=== PATIENT | female | born 1980 | race Caucasian/White ===

== ENCOUNTER 2017-05-27 05:14 | Inpatient (IN) | payer BC ==
[2017-05-27] MEDS ORDERED: Dextrose 5%-Lactated Ringers 1,000 ML IV SCH (06:00)
[2017-05-27] MEDS ORDERED: Albuterol/Ipratropium 3.0-0.5 MG/3 ML Neb Soln NEB ONE (06:00)
[2017-05-27] MEDS ORDERED: Scopolamine 1.5 MG Transdermal Patch TRDERM SCH (06:00)
[2017-05-27] MEDS ORDERED: Celecoxib 200 MG Cap PO ONE ×2 (06:00)
[2017-05-27] MEDS ORDERED: cefOXitin 2 GM Vial ONE (07:01)
[2017-05-27] MEDS ORDERED: Levofloxacin/Dextrose 5%-Water 500 MG in Premix Bag 1 BAG IV ONE (07:15)
[2017-05-27] MEDS ORDERED: Dexamethasone 4 MG/ML SDV ONE (07:16)
[2017-05-27] MEDS ORDERED: Propofol 200 MG/20 ML SDV ONE (07:16)
[2017-05-27] MEDS ORDERED: Glycopyrrolate 0.2 MG/ML 5 ML MDV ONE (07:16)
[2017-05-27] MEDS ORDERED: Ondansetron 4 MG/2 ML SDV ONE (07:16)
[2017-05-27] MEDS ORDERED: Neostigmine Methylsulfate 1 MG/ML 5 ML Syringe ONE (07:16)
[2017-05-27] MEDS ORDERED: Rocuronium 50 MG/5 ML Vial ONE (07:16)
[2017-05-27] MEDS ORDERED: Midazolam 1 MG/ML 2 ML SDV ONE (07:16)
[2017-05-27] MEDS ORDERED: Succinylcholine 200 MG/10 ML MDV ONE (07:16)
[2017-05-27] MEDS ORDERED: Ketamine 500 MG/5 ML MDV IV SCH (07:30)
[2017-05-27] MEDS ORDERED: Ropivacaine 56 ML, Dexamethasone 8 MG, EPINEPHrine 0.4 MG, Sodium Chloride 0.9% 21.6 ML NERVRT SCH ×4 (07:30)
[2017-05-27] MEDS ORDERED: Lidocaine 2% 100 MG/5 ML Syringe IVPUSH ONE (07:30)
[2017-05-27] MEDS ORDERED: Levofloxacin 500 MG/20 ML SDV ONE (07:45)
[2017-05-27] MEDS ORDERED: Lactated Ringers 1,000 ML ONE (08:15)
[2017-05-27] MEDS ORDERED: hydrOXYzine HCl 100 MG/2 ML SDV IM ONE (09:49)
[2017-05-27] MEDS ORDERED: fentaNYL 100 MCG/2 ML SDV IVPUSH ONE (10:15)
[2017-05-27] MEDS ORDERED: Naloxone 0.4 MG/ML SDV IV PRN (11:20)
[2017-05-27] MEDS: HYDROmorphone/Normal Saline 15 MG/30 ML PCA IV PRN (11:31)
[2017-05-27] MEDS: Dextrose 5%-Lactated Ringers 1,000 ML IV SCH ×2 (11:35→22:54)
[2017-05-27] MEDS: Lidocaine 0.4%/D5W 2 GM/500 ML BAG IV SCH (11:42)
[2017-05-27] MEDS ORDERED: Albuterol/Ipratropium 3.0-0.5 MG/3 ML Neb Soln INH PRN (12:00)
[2017-05-27] MEDS ORDERED: Metoclopramide 10 MG/2 ML SDV IVPUSH PRN (12:00)
[2017-05-27] MEDS ORDERED: Ondansetron 4 MG/2 ML SDV IVPUSH PRN (12:00)
[2017-05-27] MEDS ORDERED: SCOPOLAMINE PATCH ASK TOP SCH (12:00)
[2017-05-27] MEDS ORDERED: Labetalol 20 MG/4 ML Syringe IVPUSH PRN (12:00)
[2017-05-27] MEDS: Pantoprazole 40 MG Vial IVPUSH SCH (12:03)
[2017-05-27] MEDS: Albuterol/Ipratropium 3.0-0.5 MG/3 ML Neb Soln INH SCH ×2 (14:59→21:13)
[2017-05-27] MEDS: diphenhydrAMINE 50 MG/ML SDV IVPUSH PRN ×2 (17:04→23:36)
[2017-05-27] MEDS: MVI, Adult with Vitamin K 10 ML, Thiamine 200 MG, Chromium/Copper/Mang/Selen/Zn 1 ML in... IV SCH ×4 (17:05)
[2017-05-27] MEDS: Heparin Sodium 5,000 Units/ML Vial SUBCUT SCH (17:18)
[2017-05-27] MEDS: hydrOXYzine HCl 100 MG/2 ML SDV IM PRN (20:06)
[2017-05-27] MEDS: Montelukast 10 MG Tab PO SCH (21:15)
[2017-05-27] MEDS: Ketotifen 0.025% Ophth Soln 5 ML Bottle EYEBOTH SCH (21:15)
[2017-05-28] MEDS: hydrOXYzine HCl 100 MG/2 ML SDV IM PRN ×2 (00:14→05:12)
[2017-05-28] MEDS ORDERED: Iohexol 647 MG/ML 50 ML SDV PO STA (00:29)
[2017-05-28] MEDS: Lidocaine 0.4%/D5W 2 GM/500 ML BAG IV SCH (01:10)
[2017-05-28] MEDS: HYDROmorphone/Normal Saline 15 MG/30 ML PCA IV PRN (01:49)
[2017-05-28] MEDS: Dextrose 5%-Lactated Ringers 1,000 ML IV SCH (04:22)
[2017-05-28] MEDS: Heparin Sodium 5,000 Units/ML Vial SUBCUT SCH ×2 (05:13→17:48)
[2017-05-28] MEDS: diphenhydrAMINE 50 MG/ML SDV IVPUSH PRN (05:51)
[2017-05-28] MEDS ORDERED: Levofloxacin/Dextrose 5%-Water 500 MG in Premix Bag 1 BAG IV SCH (06:00)
[2017-05-28] MEDS ORDERED: methylPREDNISolone Sodium Succinate 40 MG/1 ML SDV IVPUSH ONE (06:40)
[2017-05-28] MEDS: Albuterol/Ipratropium 3.0-0.5 MG/3 ML Neb Soln INH SCH ×4 (07:26→20:57)
[2017-05-28] MEDS ORDERED: methylPREDNISolone Sodium Succinate 125 MG/2 ML SDV IVPUSH SCH ×2 (08:00→18:00)
[2017-05-28] MEDS ORDERED: Dextrose 5%-Lactated Ringers 1,000 ML IV SCH (08:01)
[2017-05-28] MEDS ORDERED: Zolpidem 5 MG Tab PO PRN (08:01)
[2017-05-28] MEDS ORDERED: Albuterol 8 GM Inhaler INH PRN ×3 (08:01)
[2017-05-28] MEDS: oxyCODONE 5 MG Tab PO PRN ×3 (08:29→17:42)
--- NOTE | 2017-05-28 08:30 | CR ---
Limited upper GI. Contrast within the distal esophagus. Contrast into small bowel past the anastomos is.
--- NOTE | 2017-05-28 08:58 | PN ---
DATE OF SERVICE: 05/28/2017 SUBJECTIVE: Comfort is postop day one. Her lidocaine drip is still running. She has had an increased amount of itching all night long. She states she only slept about 15 minutes, and she has been up ambulating. Concerned about having a bowel movement. She did retain urine and did have to have a Fry catheter put back in. REVIEW OF SYSTEMS: Remainder of review of systems negative for any pertinent positives and negatives. OBJECTIVE: GENERAL: Comfort Barton is a 36-year-old female. VITAL SIGNS: TPR 97.1, 81, 18. Blood pressure 148/70. HEENT: Negative. NECK: Supple. HEART: Regular rate and rhythm. LUNGS: Clear. ABDOMEN: Dressings dry and intact. Abdominal binder is on. SERENA put out 130 mL of a light pink serous drainage. EXTREMITIES: SCDs are on and there is no peripheral edema. ASSESSMENT: Laparoscopic gastric bypass surgery, liver biopsy, repair of diaphragmatic hernia, and excision of mediastinal lipoma for morbid obesity, hepatomegaly, diaphragmatic hernia, and mediastinal lipoma. Date of surgery 05/27/2017. PLAN: 1. Decrease IV to 100 mL per hour, Solu-Medrol 80 mg IV now. 2. Solu-Medrol IV 60 mg every 12 hours. 3. Dressing off, february shower. 4. Discontinue Fry catheter at 1100 hours. 5. Oxycodone 5 mg q.4 hours p.r.n. pain. 6. Gastric bypass diet step two with no cereal. 7. She is to restart her home medication betamethasone one applicator twice daily, Flonase one spray in each nostril every 12 hours, levothyroxine 75 mcg p.o. daily, milk of magnesia 30 mL b.i.d., Singulair 10 mg p.o. at bedtime, Ambien 10 mg p.o. daily p.r.n., Advair 250/50 Diskus one inhalation q.12 hours, Diprolene 0.05% one applicator topical daily, Elocon 0.1% cream one applicator daily, Zonegran 150 mg b.i.d. as scheduled, prazosin Minipress 4 mg at bedtime, Seroquel 25 mg b.i.d., Seroquel 30 mg p.o. at bedtime, senna 8.6 mg b.i.d., Atarax 100 mg p.o. t.i.d. scheduled. 8. Good pulmonary toilet encouraged. 9. We will evaluate p.r.n. or in a.m. Kat Pedro PA-C /[id number]
[2017-05-28] MEDS ORDERED: Olopatadine 0.1% Ophth Soln 5 ML Bottle EYEBOTH SCH (09:00)
[2017-05-28] MEDS ORDERED: MOMETASONE FUROATE TOP SCH (09:00)
[2017-05-28] MEDS: Formoterol/Mometasone 200-5 MCG 8.8 GM Inhaler IH SCH ×2 (09:31→20:57)
[2017-05-28] MEDS: hydrOXYzine HCl 25 MG Tab PO SCH ×3 (09:35→20:56)
[2017-05-28] MEDS: Celecoxib 200 MG Cap PO SCH (09:35)
[2017-05-28] MEDS: Fluticasone Propionate Nasal Spray 16 GM Bottle NASBOTH SCH (09:36)
[2017-05-28] MEDS: Ketotifen 0.025% Ophth Soln 5 ML Bottle EYEBOTH SCH ×2 (09:38→20:57)
[2017-05-28] MEDS: Levothyroxine 75 MCG Tab PO SCH (09:38)
[2017-05-28] MEDS: Magnesium Hydroxide 400 MG/5 ML Susp 30 ML Cup PO SCH ×2 (09:39→20:54)
[2017-05-28] MEDS: SCOPOLAMINE PATCH CHECK TOP SCH (09:39)
[2017-05-28] MEDS: Sennosides 8.6 MG Tab PO SCH ×2 (09:40→21:00)
[2017-05-28] MEDS: QUEtiapine 25 MG Tab PO SCH ×2 (11:19→15:46)
[2017-05-28] MEDS: Pantoprazole 40 MG Vial IVPUSH SCH (11:20)
--- NOTE | 2017-05-28 14:46 | OR ---
DATE OF PROCEDURE: 05/27/2017 PREOPERATIVE DIAGNOSIS: Morbid obesity. POSTOPERATIVE DIAGNOSES: 1. Morbid obesity. 2. Marked hepatomegaly. 3. Paraesophageal diaphragmatic hernia. 4. Mediastinal lipoma. OPERATIVE PROCEDURES: 1. Laparoscopic Sade-en-Y gastric bypass, long limb gastroenterostomy (16624). 2. Sher-Cut needle liver biopsy (24456). 3. Repair of paraesophageal diaphragmatic hernia (11608). 4. Excision of mediastinal lipoma (07747). ANESTHESIA: General. INDICATION FOR PROCEDURE: This is a 36-year-old female presenting with longstanding morbid obesity and increasingly significant comorbidities. After preoperative evaluation and discussion, she wished to proceed with a gastric bypass procedure. Potential risks of the procedure including bleeding, infection, leaks from various GI tract closures, problems with bowel obstruction over time as well as possibility of cardiopulmonary, septic, or hemorrhagic complications leading to were discussed, and the patient wishes to proceed. The patient has in place ventriculoperitoneal shunt. This will be temporary ligated during the procedure through a small incision in the anterior chest wall. The potential risks primarily that the catheter might become infected or fractured were also reviewed, and she wishes to proceed. DETAILS OF PROCEDURE: The patient was taken to the operating room and after general endotracheal anesthesia was induced, initially, the bilateral subcostal transversus abdominis plane blocks were placed with the usual formula. These were done with continuous ultrasound guidance and adequate deployment of the solution was confirmed by ultrasound. Following this, the patient was converted to a lithotomy position and the orogastric tube was placed and the abdomen and chest wall were prepped and draped. Initially, the shunt was palpated over the anterior chest wall, and a small transverse incision was made at that level. It was carried down through the skin and subcutaneous tissue. The catheter itself was not dissected free from the soft tissues but enough of the subcutaneous tissue around it was then freed up and a steel clamp will be placed on it and this was left in place until the conclusion of the procedure, at which time the skin overlying was closed as per the other incisions. At this point, a 15 cm inferior, 5 cm left of xiphoid process, transverse incision was made and the peritoneal cavity was entered under direct vision with an Optiview trocar inflated to 15 mmHg pressure with CO2. Laparoscope was then reinserted. No underlying trocar insertion site injuries were seen. Following this, 5 additional trocars were placed across the upper and mid abdomen. General exploration was undertaken. The patient was noted to have marked hepatomegaly with liver being grossly fatty infiltrated. There did not appear to be any cirrhotic changes. Of note, the patient had quite a bit of significant liver injury secondary to Tylenol overdose, but the liver today other than that for being somewhat large fatty infiltrate, consistent with obesity, was not particularly diseased. Sher-Cut biopsies were obtained from left lobe of the liver. Minimal bleeding from the biopsy site was controlled with electrocautery. At this point, the omentum was divided in the midline up to the level of the transverse colon. This allowed identification of the small bowel to the ligament of Treitz. Small bowel was then traced out 200 cm distal to that point, it was divided transversely with a GRACE stapler. Small bowel was then traced out to additional 150 cm, where the [id number] enteroenterostomy was accomplished with internal firing of the Endo-GRACE 60 mm stapler. The common opening was then closed transversely with the same stapler and angles anastomosed, and mesenteric defect approximated with some Ethibond stitch along with 4 mL of fibrin sealant. The Sade limb was then from the mesentery for a few centimeters, which allowed an antecolic position of the Sade limb up to the level of the gastroesophageal junction without tension. The liver was retracted anteriorly and the patient noted to have a moderate-sized paraesophageal diaphragmatic hernia with prolapse of some perigastric fat and upper aspect of the fundus in a plane anterior to the course of the esophagus. This was reduced and the peritoneum overlying the hernia. We divided and reflected downward. An anterior repair of the diaphragmatic hernia was accomplished with some 0 Ethibond sutures reinforced with PTFE pledgets. The course of the diaphragmatic hernia dissection and the mediastinal lipoma was encountered and this was excised and sent as a separate specimen as well. At this point, the gastrointestinal catheter was inflated 15 mL and pulled up snugly to the EG junction, gastric wall apex balloon was then marked with electrocautery, and balloon catheter deflated and pulled up in the esophagus. The lesser omental tissue adjacent to the gastric cardia was then incised allowing dissection of the stomach posteriorly into the lesser sac. The pouch formation was initiated with a transverse firing of the GRACE stapler at the level of the cauterized peter at the gastric cardia and then completed with 2 additional firings of GRACE stapler up to and through the angle of His. Upon completion of the pouch, both staple lines were noted to be intact. The anvil of a 21 mm EEA stapler was attached to a [place] sump type tube. The later was brought down through the mouth and a small opening gastric pouch, allowing the anvil likewise to be pulled down to within the gastric pouch. The divided end of the Sade limb was then opened by the EEA stapler passed several cm into the Sade limb, brought up the anvil and united with it, thus creating the gastrojejunostomy. Upon removal of stapler, double donuts of mucosa were noted within and small bowel was closed off with a gastric stapling. Gastrojejunostomy was reinforced with some 3-0 Vicryl seromuscular stitch along with fibrin sealant. A leak test was accomplished with injection of 120 mL of air in the gastric pouch while submerged with cefoxitin-containing saline solution. No leaks were identified. One Jose D-Weinstein drain was in place using the gastrojejunostomy from there up into the splenic fossa and taken out through the left lateral trocar site with no further problems noted. Trocars were removed. The peritoneal cavity was deflated. Incisions were closed with some 4-0 Vicryl skin stitch and dressing was applied. The patient was taken to the recovery room in a satisfactory condition. Vadim Nice MD /[id number]
[2017-05-28] MEDS ORDERED: diphenhydrAMINE 25 MG Cap PO PRN (17:04)
[2017-05-28] MEDS ORDERED: hydrOXYzine HCl 25 MG Tab PO PRN (17:06)
[2017-05-28] MEDS ORDERED: Ondansetron 4 MG Tab.DIS PO PRN (17:08)
[2017-05-28] MEDS: MVI, Adult with Vitamin K 10 ML, Thiamine 200 MG, Chromium/Copper/Mang/Selen/Zn 1 ML in... IV SCH ×4 (17:28)
[2017-05-28] MEDS ORDERED: QUEtiapine 100 MG Tab PO SCH (21:00)
[2017-05-28] MEDS ORDERED: Prazosin 1 MG Cap PO SCH (21:00)
[2017-05-28] MEDS ORDERED: Montelukast 10 MG Tab PO SCH (21:00)
[2017-05-28] MEDS: Montelukast 10 MG Tab PO SCH (21:02)
[2017-05-29 04:25] VITALS: BP 131/71
[2017-05-29] MEDS: oxyCODONE 5 MG Tab PO PRN ×2 (04:32→09:15)
[2017-05-29] MEDS: Heparin Sodium 5,000 Units/ML Vial SUBCUT SCH (05:33)
[2017-05-29] MEDS: Celecoxib 200 MG Cap PO SCH (07:28)
[2017-05-29] MEDS: Levothyroxine 75 MCG Tab PO SCH (07:29)
[2017-05-29] MEDS: Albuterol/Ipratropium 3.0-0.5 MG/3 ML Neb Soln INH SCH (07:44)
--- NOTE | 2017-05-29 08:40 | DISCH ---
ADMISSION DIAGNOSES: Morbid obesity, hypothyroidism, allergic rhinitis, asthma, esophageal reflux, anemia, seizure disorder, sleep apnea, anxiety and depression, pseudotumor cerebri, fibrocystic breast disease, intracranial hypertension, headache, right pulmonary nodule, vaginal high risk HPV DNA test positive, pseudo-seizure, headache disorder, posttraumatic stress disorder, attention-deficit/hyperactivity disorder, anxiety and depression, bipolar disorder, borderline personality disorder, history of drug overdose, history of tuberculosis, ptosis of right eyelid. DISCHARGE DIAGNOSES: Laparoscopic Sade-en-Y gastric bypass surgery, long limb gastroenterostomy, Sher-Cut needle liver biopsy, repair of paraesophageal diaphragmatic hernia, and excision of mediastinal lipoma for morbid obesity, marked hepatomegaly, periesophageal diaphragmatic hernia, and mediastinal lipoma. Date of surgery 05/27/2017. HISTORY: Comfort is a 36-year-old female with longstanding history of morbid obesity and increasing comorbidities. After preoperative evaluation and discussion of possible risks and possible complications, she wished to proceed with surgical procedure. Comfort did develop intense itching with no rash. On postop day #1, she was given Solu-Medrol IV then changed to Medrol Dosepak, and this did help with the itching. HOSPITAL COURSE: Comfort had her surgery on 05/27/2017. She had no operative complications. On postop day #1, she was started on a step-2 gastric bypass diet. She was started on her oral medication. On postop day #2, she received dietary instruction, B12 1000 mcg IM injection. Her pain was well controlled. Activity was good. Vital signs stable, and she is able to be discharged to home without any complications. PHYSICAL EXAMINATION: GENERAL: Comfort Dietrich is a 36-year-old female. VITAL SIGNS: Height is 5 feet 2 inches, weight is 233 pounds. TPR 98.5, 79, 16. Blood pressure 131/71. HEENT: Negative. NECK: Supple. HEART: Regular rate and rhythm. LUNGS: Clear. ABDOMEN: Dressings dry. Incisions look good. SERENA drain is intact. This will be removed prior to discharge and 4x4 will be placed over it. Abdominal binder has been on. EXTREMITIES: Without peripheral edema. DISPOSITION: Discharged to home. CONDITION: Stable and improving. FOLLOWUP: On 06/10/2017 at 9:00 a.m. at [place], [place] with Kat Pedro PA-C. DISCHARGE MEDICATIONS: New prescription Celebrex 200 mg oral daily for 14 days, Medrol 4 mg Dosepak use as directed to fill only if she needs it for itching, oxycodone 5 mg q.4 hours p.r.n. pain #30. Continue taking multivitamin chewable complete one b.i.d., vitamin B12 sublingual 1000 mcg daily, ProAir inhaler 2 puffs every 4 hours p.r.n. shortness of breath, Proventil 3 mL inhalation every 4 hours p.r.n. shortness of breath, Diprolene 0.05% one applicator topical twice daily, Magic Mouthwash 5 mL oral daily p.r.n. mouth sores, Flonase 2 inhalation daily, Advair 250/50 Diskus one inhalation every 12 hours, levothyroxine 75 mcg oral daily, Elocon 0.1% cream one applicator topical daily, Singulair 10 mg oral at bedtime, Patanol 0.1% ophthalmic solution one drop each eye twice daily, Protonix 20 mg oral daily, prazosin 4 mg oral at bedtime, psyllium fiber 0.52 g oral twice daily, Seroquel 300 mg at bedtime, Seroquel 25 mg oral twice daily, senna one tablet oral twice daily, Ambien 10 mg oral daily p.r.n. insomnia, Zonegran 150 oral twice daily, Atarax 100 mg oral 3 times a day, Depo-Provera 1 injection every three months. Discontinue taking biotin, calcium citrate, vitamin D3, Vitron C, and B complex until next appointment instructions will be given. DISCHARGE DIET: After discharge, step-2 gastric bypass diet with no cereal for 2 weeks. ACTIVITY: No lifting over 10 pounds for 2 weeks. DISCHARGE INSTRUCTIONS: Driving, do not drive while on pain medication. Shower bathing, may shower. Notify provider if any fever, increased pain, nausea, or vomiting. Wound incision care, keep site clean and dry. Wear abdominal binder for 2 weeks and use incentive spirometer 10 times every hour while awake.
[2017-05-29] MEDS ORDERED: Cyanocobalamin (Vitamin B12) 1,000 MCG/ML SDV IM ONE (09:00)
[2017-05-29] MEDS: Formoterol/Mometasone 200-5 MCG 8.8 GM Inhaler IH SCH (09:13)
[2017-05-29] MEDS: SCOPOLAMINE PATCH CHECK TOP SCH (09:31)
[2017-05-29] MEDS: Fluticasone Propionate Nasal Spray 16 GM Bottle NASBOTH SCH (09:32)
[2017-05-29] MEDS: hydrOXYzine HCl 25 MG Tab PO SCH (09:32)
[2017-05-29] MEDS: Sennosides 8.6 MG Tab PO SCH (09:32)
[2017-05-29] MEDS: Ketotifen 0.025% Ophth Soln 5 ML Bottle EYEBOTH SCH (09:32)
[2017-05-29] MEDS: Magnesium Hydroxide 400 MG/5 ML Susp 30 ML Cup PO SCH (09:32)
[2017-05-29] MEDS: QUEtiapine 25 MG Tab PO SCH (09:32)
== END 2017-05-29 11:15 | disposition home or self-care (01) | DRG 403 ==
LOC: JP.MS 05:14 → JP.SDS 05:14 → EDSTATUS 07:30 → JP.2SS 09:00
PROVIDERS: ADMIT Surgery; ATTEND Surgery
PROC: 0FB24ZX Excision of Left Lobe Liver, Percutaneous Endoscopic Approach, Diagnostic (ICD-10-PCS; principal; 2017-05-27)
PROC: 3E0T3BZ Introduction of Anesthetic Agent into Peripheral Nerves and Plexi, Percutaneous Approach (ICD-10-PCS; principal; 2017-05-27)
PROC: 0BQS4ZZ (ICD-10-PCS; principal; 2017-05-27)
PROC: 0BQR4ZZ (ICD-10-PCS; principal; 2017-05-27)
PROC: 0D164ZA Bypass Stomach to Jejunum, Percutaneous Endoscopic Approach (ICD-10-PCS; principal; 2017-05-27)
PROC: 0WBC4ZX Excision of Mediastinum, Percutaneous Endoscopic Approach, Diagnostic (ICD-10-PCS; principal; 2017-05-27)
DX: E66.01 Morbid (severe) obesity due to excess calories (principal); Z68.41 Body mass index [BMI] 40.0-44.9, adult; R16.0 Hepatomegaly, not elsewhere classified; K44.9 Diaphragmatic hernia without obstruction or gangrene; D17.4 Benign lipomatous neoplasm of intrathoracic organs; K76.0 Fatty (change of) liver, not elsewhere classified; G47.30 Sleep apnea, unspecified; K21.9 Gastro-esophageal reflux disease without esophagitis; G47.00 Insomnia, unspecified; F32.9 Major depressive disorder, single episode, unspecified; E03.9 Hypothyroidism, unspecified; F41.9 Anxiety disorder, unspecified; F43.10 Post-traumatic stress disorder, unspecified; Z98.2 Presence of cerebrospinal fluid drainage device; J45.909 Unspecified asthma, uncomplicated; Z86.11 Personal history of tuberculosis; Z88.6 Allergy status to analgesic agent; Z88.1 Allergy status to other antibiotic agents; Z88.8 Allergy status to other drugs, medicaments and biological substances; Z91.048 Other nonmedicinal substance allergy status; G40.909 Epilepsy, unspecified, not intractable, without status epilepticus; L29.9 Pruritus, unspecified; H02.401 Unspecified ptosis of right eyelid; F60.3 Borderline personality disorder
CPT/HCPCS: 36415; 74240; 74240-26; 86850; 86900; 86901; 88304; 88307; 88313; 94640-76; 94664; A9270-GY; C9113; J0171; J0330; J0694; J1100; J1170; J1200; J1644; J1956; J2001; J2250; J2405; J2704; J2795; J2920; J3010; J3410; J3411; J3420; J7030; J7042; J7050; J7120; J7620; Q9967

== ENCOUNTER → 2017-06-24 | Day surgery (SDC) | payer BC ==
[~2017-06-24] MED LIST: Cyanocobalamin (Vitamin B12) 1,000 MCG/ML SDV IM ONE; Glycopyrrolate 0.2 MG/ML 2 ML SDV IVPUSH ONE; Lactated Ringers 1,000 ML IV ONE; MVI, Adult with Vitamin K 10 ML, Chromium/Copper/Mang/Selen/Zn 1 ML, Thiamine 200 MG in... IV ONE; Midazolam 1 MG/ML 2 ML SDV ONE; Propofol 200 MG/20 ML SDV ONE; fentaNYL 100 MCG/2 ML SDV ONE
[2017-06-24 14:31] VITALS: BP 117/71
--- NOTE | 2017-06-29 12:04 | OR ---
DATE OF PROCEDURE: 06/24/2017 PREOPERATIVE DIAGNOSIS: Possible stricture at gastrojejunostomy. POSTOPERATIVE DIAGNOSIS: Mild stricture at gastrojejunostomy. OPERATIVE PROCEDURE: Upper GI endoscopy with dilation of gastrojejunostomy (87602). ANESTHESIA: IV sedation. INDICATION FOR PROCEDURE: This is a 36-year-old presenting with symptom of stricturing at her gastrojejunostomy. She is status post a gastric bypass procedure on 05/27/2017. Plan is to proceed with an upper GI endoscopy with dilation as indicated. Potential risks including bleeding and perforation were discussed and the patient wishes to proceed. DETAILS OF PROCEDURE: The patient was taken to the operating room and placed in a left lateral decubitus position. IV sedation was administered after which the upper GI endoscope was passed orally through the length of the esophagus and from there into the gastric pouch. The patient was noted to have a mild stricture of the gastrojejunostomy with the scope actually being able to be passed through the anastomosis. Initially, a Bard gastrointestinal balloon catheter was inflated to 36-Maltese size and then a second dilator at 45-Maltese size was inflated across the anastomosis. Upon completion of the dilation, the anastomosis was examined and found to be intact. The scope was then withdrawn. The procedure concluded. The patient was taken to the recovery room in a satisfactory condition. Vadim Nice MD /[id number]
== END ==
LOC: JP.SDS 11:34
PROVIDERS: ATTEND Surgery
DX: K94.23 Gastrostomy malfunction (principal); Z98.84 Bariatric surgery status
CPT/HCPCS: 43245; J2250; J2704; J3010; J3411; J3420; J7120; J3490

== ENCOUNTER 2017-07-08 07:17 | Day surgery (SDC) | payer BC ==
[~2017-07-08 07:17] MED LIST changes: +Ampicillin/Sulbactam Na 3 GM in Sodium Chloride 0.9% 100 ML IV ONE; +Bupivacaine 0.5%/EPINEPHrine 1:200,000 50 ML MDV ONE; -Cyanocobalamin (Vitamin B12) 1,000 MCG/ML SDV IM ONE; -Glycopyrrolate 0.2 MG/ML 2 ML SDV IVPUSH ONE; -Lactated Ringers 1,000 ML IV ONE; -MVI, Adult with Vitamin K 10 ML, Chromium/Copper/Mang/Selen/Zn 1 ML, Thiamine 200 MG in... IV ONE; -Midazolam 1 MG/ML 2 ML SDV ONE; -Propofol 200 MG/20 ML SDV ONE; -fentaNYL 100 MCG/2 ML SDV ONE
[2017-07-08] MEDS ORDERED: Dextrose 5%-Lactated Ringers 1,000 ML IV SCH (08:15)
[2017-07-08] MEDS ORDERED: Neostigmine Methylsulfate 1 MG/ML 5 ML Syringe ONE (09:13)
[2017-07-08] MEDS ORDERED: Glycopyrrolate 0.2 MG/ML 5 ML MDV ONE (09:13)
[2017-07-08] MEDS ORDERED: Dexamethasone 4 MG/ML SDV ONE (09:13)
[2017-07-08] MEDS ORDERED: Rocuronium 50 MG/5 ML Vial ONE (09:13)
[2017-07-08] MEDS ORDERED: Succinylcholine 200 MG/10 ML MDV ONE (09:13)
[2017-07-08] MEDS ORDERED: Ondansetron 4 MG/2 ML SDV ONE (09:13)
[2017-07-08] MEDS ORDERED: Propofol 200 MG/20 ML SDV ONE (09:13)
[2017-07-08] MEDS ORDERED: Albuterol/Ipratropium 3.0-0.5 MG/3 ML Neb Soln NEB ONE (09:15)
[2017-07-08] MEDS ORDERED: Levofloxacin/Dextrose 5%-Water 500 MG in Premix Bag 1 BAG IV ONE ×4 (09:15)
[2017-07-08] MEDS ORDERED: Meperidine 300 MG/30 ML PCA Vial IV PRN (09:35)
[2017-07-08] MEDS ORDERED: Naloxone 0.4 MG/ML SDV IV PRN (09:41)
[2017-07-08] MEDS ORDERED: Levofloxacin 500 MG/20 ML SDV ONE (11:36)
[2017-07-08] MEDS ORDERED: Sugammadex Sodium 200 MG/2 ML VIAL ONE (11:50)
[2017-07-08] MEDS ORDERED: Zolpidem 5 MG Tab PO PRN (12:52)
[2017-07-08] MEDS ORDERED: Albuterol/Ipratropium 3.0-0.5 MG/3 ML Neb Soln INH PRN (12:53)
[2017-07-08] MEDS ORDERED: Pantoprazole 40 MG Vial IV SCH (14:00)
[2017-07-08] MEDS: Albuterol/Ipratropium 3.0-0.5 MG/3 ML Neb Soln INH SCH ×2 (14:31→20:03)
[2017-07-08] MEDS: Ondansetron 4 MG/2 ML SDV IVPUSH PRN (17:10)
[2017-07-08] MEDS: oxyCODONE 5 MG Tab PO PRN ×2 (18:01→22:02)
[2017-07-08] MEDS: Zonisamide 50 MG Capsule PO SCH (20:02)
[2017-07-08] MEDS: OLOPATADINE 0.1% EYEBOTH SCH (20:03)
[2017-07-08] MEDS: Dextrose 5%-Lactated Ringers 1,000 ML IV SCH (20:47)
[2017-07-08] MEDS ORDERED: Montelukast 10 MG Tab PO SCH (21:00)
[2017-07-08] MEDS ORDERED: Ketotifen 0.025% Ophth Soln 5 ML Bottle EYEBOTH SCH (21:00)
[2017-07-09] MEDS: oxyCODONE 5 MG Tab PO PRN ×2 (02:16→08:45)
[2017-07-09] MEDS: Ondansetron 4 MG/2 ML SDV IVPUSH PRN (02:16)
[2017-07-09] MEDS: Dextrose 5%-Lactated Ringers 1,000 ML IV SCH (04:47)
[2017-07-09] MEDS: Albuterol/Ipratropium 3.0-0.5 MG/3 ML Neb Soln INH SCH (07:21)
[2017-07-09 07:41] VITALS: BP 111/69
[2017-07-09] MEDS: OLOPATADINE 0.1% EYEBOTH SCH (08:46)
[2017-07-09] MEDS: Zonisamide 50 MG Capsule PO SCH (08:46)
[2017-07-09] MEDS ORDERED: Levofloxacin/Dextrose 5%-Water 500 MG in Premix Bag 1 BAG IV ONE (09:00)
--- NOTE | 2017-07-09 13:51 | OR ---
DATE OF PROCEDURE: 07/08/2017 PREOPERATIVE DIAGNOSES: 1. Biliary dyskinesia. 2. Status post ventriculoperitoneal shunt. POSTOPERATIVE DIAGNOSES: 1. Biliary dyskinesia. 2. Status post ventriculoperitoneal shunt. OPERATIVE PROCEDURES: 1. Laparoscopic cholecystectomy (81217). 2. Temporary ligation of ventriculoperitoneal shunt (31360). ANESTHESIA: General. RECREATIONAL DIRECTOR: Kat Pedro PA-C. INDICATION FOR PROCEDURE: This is a 36-year-old female who is presenting with increasingly symptomatic gallbladder disease. She recently had a HIDA scan, which had a fairly precise reproduction of the patient's nausea and other symptoms with the CCK injection. Given this, she is to undergo a cholecystectomy at this time. She has a ventriculoperitoneal shunt in place, and that will be temporarily ligated during the course of the procedure to prevent CO2 backflow by the shunt. Potential risks including bleeding, infection, injury to underlying viscera, problems with stones migrating in the common bile duct requiring potentially additional procedures for correction, as well as possibility of the ventriculoperitoneal shunt becoming infected were all gone over. Finally, the possibility of some persistent symptoms postoperatively were reviewed, and the patient wishes to proceed. DETAILS OF PROCEDURE: The patient was taken to the operating room. After general endotracheal anesthesia was induced, the neck and the abdomen were prepped and draped. The ventriculoperitoneal shunt was most easily palpated in the upper anterior chest. A small incision was made over this and soft tissues dissected around the shunt to the extent that it could be temporarily occluded with a mosquito clamp. The soft tissue was not directly dissected down to the point where it was directly over the shunt itself, to limit chances of getting that area infected. At this point, the abdomen was entered under direct vision with an Optiview trocar through an incision just to the right of the umbilicus. The peritoneal cavity was entered and inflated to 15 mmHg of CO2. The laparoscope was then reinserted. No underlying trocar insertion site injuries were seen. Following this, a 12-mm epigastric trocar was placed along with a 5-mm right abdominal trocar. The liver, since the recent gastric bypass, had improved dramatically in terms of the degree of fatty infiltration and overall size, thus making the gallbladder exposure to this point quite straightforward. The gallbladder itself was quite edematous, consistent with chronic cholecystitis. The gallbladder was then retracted anteriorly and laterally. Dissection began on the gallbladder neck with the Harmonic scalpel and continued around the gallbladder neck/cystic duct junction. Once that area was well defined, as was the adjacent cystic artery, both structures were clipped 3 times proximally and once distally and the gallbladder neck/cystic duct junction divided. The gallbladder was then dissected off the gallbladder bed using Harmonic scalpel and delivered through the epigastric trocar site off the field. The gallbladder was inspected and was noted to have an intense cholesterolosis on its mucosal surface. The patient was also noted to have a small polyp seen in the preoperative imaging, which appeared to be quite small and very unlikely to be anything but a benign polyp. At this point, the area of dissection was inspected. The abdomen was irrigated with a Levaquin-containing saline solution. The trocars were then sequentially removed. The fascia of the 12 mm sites were closed with 0 Vicryl stitch and the skin at each incision with 4-0 Vicryl skin stitch, as was the incision over the ventriculoperitoneal shunt. The patient was taken to the recovery room in a satisfactory condition. Physician advertising assistant manager, Kat Pedro, played an essential role in assisting in this case, helping to position the patient, retract structures as needed, as well as suturing and cutting sutures when indicated. Her presence improved patient safety and decreased the operative time. Vadim Nice MD /[id number]
--- NOTE | 2017-07-09 15:30 | DISCH ---
ADMISSION DIAGNOSES: Adenomyomatosis, gallbladder; chronic cholecystitis; SP Sade-en-Y gastric bypass surgery; unspecified surgical malabsorption; B12 deficiency; allergic rhinitis; hypothyroidism; asthma; seizure disorders; sleep apnea with use of CPAP; anxiety and depression; pseudotumor cerebri; intracranial hypertension; headache; pulmonary nodule on the right; headache disorder; posttraumatic stress disorder. DISCHARGE DIAGNOSES: Laparoscopic cholecystectomy for chronic cholecystitis associated with biliary dyskinesia and temporary ligation of PROFESSOR OF ENGLISH shunt, SP PROFESSOR OF ENGLISH shunt for pseudotumor cerebri. Date of surgery, 07/08/2017. HISTORY: Comfort Barton is a 36-year-old female with persistent right upper quadrant abdominal pain and nausea after preoperative evaluation and discussion of possible risks and possible complications, she wished to proceed with surgical procedure. HOSPITAL COURSE: Comfort had her surgery on 07/08/2017. She had no operative complications. On postop day #1, she was able to be discharged to home. DISCHARGE PHYSICAL EXAMINATION: GENERAL: Comfort Barton is a 36-year-old female. VITAL SIGNS: Height is 5 feet 2 inches. Weight is 214 pounds. TPR is 96.2, 62, 16. Blood pressure 111/69. HEENT: Negative. NECK: Supple. HEART: Regular rate and rhythm. LUNGS: Clear. ABDOMEN: Incision looks good. Sutures in place. Abdominal binder is benign. EXTREMITIES: Without peripheral edema. DISPOSITION: Discharged to home. CONDITION: Stable and improving. FOLLOWUP APPOINTMENT: Kat Pedro PA-C, on 07/15/2017 at 9:00 a.m. at [facility], [place], [facility]. DISCHARGE MEDICATIONS: Oxycodone 5-10 mg q.4 hours p.r.n. pain, #40; MiraLAX 17 g p.o. b.i.d. She is to resume her home medications as she was taking prior to hospitalization. DISCHARGE DIET: Step-3 gastric bypass diet. Drink 8 to 10 glasses of water a day. ACTIVITY: As tolerated. No lifting greater than 10 pounds for 2 weeks. Driving, do not drive on pain medication. Dressing off, may shower. Keep operative site clean and dry. Wear abdominal binder for 2 weeks and then as tolerated. Notify provider if any fever, increased pain, nausea, vomiting, and use incentive spirometer 10 times every hour while awake for 1 week.
== END 2017-07-09 10:40 | disposition home or self-care (01) ==
LOC: JP.SDS 07:17 → JP.2SS 11:50 → JP.SDS 07-09 10:40
PROVIDERS: ATTEND Surgery
DX: K81.1 Chronic cholecystitis (principal); G47.33 Obstructive sleep apnea (adult) (pediatric); I10 Essential (primary) hypertension; E03.9 Hypothyroidism, unspecified; E66.01 Morbid (severe) obesity due to excess calories; J45.20 Mild intermittent asthma, uncomplicated; K21.9 Gastro-esophageal reflux disease without esophagitis; F41.8 Other specified anxiety disorders; Z88.1 Allergy status to other antibiotic agents; Z88.8 Allergy status to other drugs, medicaments and biological substances; Z91.09 Other allergy status, other than to drugs and biological substances; Z68.41 Body mass index [BMI] 40.0-44.9, adult; Z98.84 Bariatric surgery status; Z98.890 Other specified postprocedural states; Z79.899 Other long term (current) drug therapy
CPT/HCPCS: 36415; 47562; 62225; 80048; 82247; 84075; 85025; 94640; 94762; A9270; C9113; J0330; J1100; J1956; J2175; J2405; J2704; J2710; J3010; J7042; J7620; 88304

== ENCOUNTER 2021-04-25 21:15 | Inpatient (IN) | payer BC, OTHER ==
[2021-04-25] MEDS ORDERED: diphenhydrAMINE 25 MG Cap PO PRN (21:23)
[2021-04-25] MEDS ORDERED: Ondansetron 4 MG/2 ML SDV IVPUSH PRN ×2 (21:23)
[2021-04-25] MEDS ORDERED: Naloxone 0.4 MG/ML SDV IVPUSH PRN (21:23)
[2021-04-25] MEDS ORDERED: diphenhydrAMINE 50 MG/ML SDV IVPUSH PRN (21:23)
[2021-04-25] MEDS ORDERED: HYDROmorphone/Normal Saline 15 MG/30 ML PCA IV SCH (21:30)
[2021-04-25] MEDS: Dextrose 5%-Lactated Ringers 1,000 ML IV SCH (21:56)
[2021-04-25] MEDS ORDERED: QUEtiapine 100 MG Tab PO ONE (23:45)
[2021-04-25] MEDS ORDERED: ALPRAZolam 0.5 MG Tab PO ONE (23:45)
[2021-04-25] MEDS ORDERED: Prazosin 1 MG Cap PO ONE (23:45)
[2021-04-26] MEDS ORDERED: QUEtiapine 100 MG Tab PO ONE (00:15)
[2021-04-26] MEDS ORDERED: QUEtiapine 100 MG Tab ONE (00:20)
[2021-04-26] MEDS: Morphine 2 MG/ML SYRINGE IVPUSH PRN ×4 (04:19→10:00)
[2021-04-26] MEDS: Dextrose 5%-Lactated Ringers 1,000 ML IV SCH ×3 (04:25→22:58)
[2021-04-26] MEDS ORDERED: Non-Formulary Medication 1 Each IV ONE ×2 (07:07)
[2021-04-26] MEDS ORDERED: Ketamine 500 MG/5 ML MDV IV SCH ×3 (07:15→09:00)
--- NOTE | 2021-04-26 07:36 | PCM.HP.2 ---
H&P History of Present Illness - General Date of Service: 04/26/21 Source of Information: Patient History Limitations: Reports: No Limitations - History of Present Illness Initial Comments - Free Text/Narative: Comfort was transferred by ambulance from [place], [place] for a partial small bowel obstruction, internal hernia and possible sigmoid volvulus. Abdominal pain started about 2 weeks ago and gradually increased. Quality: Reports: Pressure, Same as Previous Episode, Stabbing, Throbbing Improves with: Reports: Medication Worsens with: Reports: Eating, Movement Associated Symptoms: Reports: Loss of Appetite, Weakness, Other (nausea but no vomiting. ) - Related Data Allergies/Adverse Reactions: Allergies Allergy/AdvReac Type Severity Reaction Status Date / Time metaxalone [From Skelaxin] Allergy Severe Difficulty Verified 07/08/17 08:01 Breathing hydromorphone Allergy Intermediate Itching Verified 04/26/21 00:34 acetaminophen Allergy Cannot Verified 07/08/17 08:01 Remember acetazolamide Allergy Cannot Verified 07/08/17 08:01 [From Diamox Sequels] Remember adhesive tape Allergy Cannot Verified 07/08/17 08:01 Remember aspartame Allergy Cannot Verified 07/08/17 08:01 Remember cephalexin [From Keflex] Allergy Rash Verified 07/08/17 08:01 escitalopram Allergy Rash Verified 07/08/17 08:01 furosemide [From Lasix] Allergy Cannot Verified 07/08/17 08:01 Remember gabapentin Allergy Rash Verified 07/08/17 08:01 ibuprofen Allergy Rash Verified 07/08/17 08:01 lamotrigine Allergy Rash Verified 07/08/17 08:01 oxcarbazepine Allergy Itching Verified 07/08/17 08:01 paroxetine Allergy Hives Verified 07/08/17 08:01 soap Allergy Rash Verified 07/08/17 08:01 sumatriptan Allergy Wheezing Verified 07/08/17 08:01 topiramate Allergy Rash Verified 07/08/17 08:01 venlafaxine Allergy Wheezing Verified 07/08/17 08:01 dust mite Allergy Cannot Uncoded 07/08/17 08:01 Remember Home Medications: Home Meds Albuterol [Proventil HFA] 3 ml INH Q4H PRN 05/22/17 [History] Betamethasone/Propylene Glyc [Diprolene 0.05%] 1 applic TP BID 05/22/17 [History] Cyanocobalamin (Vitamin B-12) [Vitamin B-12] 1,000 mcg SL DAILY 05/22/17 [History] Fluticasone Propion/Salmeterol [Advair 250-50 Diskus] 1 inh IH Q12H 05/22/17 [History] Fluticasone Propionate [Flonase] 2 inh INH BID 05/22/17 [History] Levothyroxine Sodium [Synthroid] 75 mcg PO DAILY 05/22/17 [History] Mometasone Furoate [Elocon 0.1% Crm] 1 applic TOP DAILY 05/22/17 [History] Montelukast [Singulair] 10 mg PO BEDTIME 05/22/17 [History] Olopatadine [Patanol 0.1% Ophth Soln] 1 drop EYEBOTH DAILY 05/22/17 [History] Pantoprazole Sodium [Protonix] 20 mg PO DAILY 05/22/17 [History] Pediatric Multivitamin Comb#30 [Gummies Children Multivitamin] 1 each PO BID 05/22/17 [History] Prazosin HCl [Prazosin] 5 mg PO BEDTIME 05/22/17 [History] QUEtiapine [SEROquel] 300 mg PO BEDTIME 05/22/17 [History] Sennosides [Senna] 1 tab PO BID 05/22/17 [History] Zolpidem Tartrate [Ambien] 10 mg PO BEDTIME PRN 05/22/17 [History] Zonisamide [Zonegran] 300 mg PO BID 05/22/17 [History] Albuterol [Ventolin HFA] 2 puff INH Q4H PRN 05/27/17 [History] medroxyPROGESTERone Acetate [Depo-Provera] 1 injection IM .Q3MO 05/27/17 [History] Biotin 10 mg PO DAILY 06/24/17 [History] Cholecalciferol (Vitamin D3) [Vitamin D3] 5,000 unit PO DAILY 06/24/17 [History] Iron Polysaccharide Complex/D3 [Novaferrum 125 Liquid] 2.5 ml PO BID 06/24/17 [History] Triamcinolone Acetonide [Triamcinolone Acetonide 0.1% Oint] 1 applic TOP BID 06/24/17 [History] Vitamin B Complex [B Complex] 1 each PO DAILY 06/24/17 [History] Polyethylene Glycol 3350 [MiraLAX] 17 gm PO BID #60 packet 07/09/17 [Rx] Prazosin HCl [Prazosin] 5 mg PO BEDTIME 04/25/21 [History] QUEtiapine Fumarate [Seroquel] 800 mg PO BEDTIME 04/25/21 [History] ALPRAZolam [Alprazolam] 2 mg PO TID 04/26/21 [History] Past Medical History HEENT History: Reports: Allergic Rhinitis, Hard of Hearing, Impaired Vision, Other (See Below) Other HEENT History: intracranal pressure Respiratory History: Reports: Asthma, Sleep Apnea, Other (See Below) Other Respiratory History: 1998 tx for tb Gastrointestinal History: Reports: Cholelithiasis, Chronic Diarrhea, GERD, Hiatal Hernia, Irritable Bowel Syndrome, Other (See Below) Other Gastrointestinal History: Bowel Obstruction October in [place] Genitourinary History: Reports: None 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: Reports: None Musculoskeletal History: Reports: None Neurological History: Reports: Headaches, Chronic Psychiatric History: Reports: Anxiety, Depression, Panic Attack, PTSD Endocrine/Metabolic History: Reports: Hypothyroidism, Obesity/BMI 30+ Hematologic History: Reports: Anemia, B12 Deficiency, Iron Deficiency Immunologic History: Reports: None Oncologic (Cancer) History: Reports: None Dermatologic History: Reports: Other (See Below) Other Dermatologic History: dermititis - Infectious Disease History Infectious Disease History: Reports: Chicken Pox - Past Surgical History HEENT Surgical History: Reports: Other (See Below) Other HEENT Surgeries/Procedures: vp account director shunt Cardiovascular Surgical History: Reports: None Respiratory Surgical History: Reports: Lung Biopsies, Other (See Below) Other Respiratory Surgeries/Procedures: benign nodule removed 10/11 right lung GI Surgical History: Reports: Bariatric Procedure, Esophageal Dilatation, Alessandra Fundoplication Female Surgical History: Reports: Breast Reduction Endocrine Surgical History: Reports: None Neurological Surgical History: Reports: None Musculoskeletal Surgical History: Reports: Other (See Below) Other Musculoskeletal Surgeries/Procedures:: cyst of tailbone Oncologic Surgical History: Reports: None Dermatological Surgical History: Reports: None Social & Family History - Family History Family Medical History: No Pertinent Family History - Tobacco Use Tobacco Use Status *Q: Never Tobacco User Second Hand Smoke Exposure: No - Caffeine Use Caffeine Use: Reports: Soda - Recreational Drug Use Recreational Drug Use: No H&P Review of Systems - Review of Systems: Review Of Systems: See Below General: Reports: Weakness, Fatigue, Decreased Appetite HEENT: Reports: No Symptoms Pulmonary: Reports: No Symptoms Cardiovascular: Reports: No Symptoms Gastrointestinal: Reports: Abdominal Pain Genitourinary: Reports: No Symptoms Musculoskeletal: Reports: No Symptoms Skin: Reports: No Symptoms Psychiatric: Reports: Depression, Anxiety, Other (ADD) Neurological: Reports: No Symptoms Hematologic/Lymphatic: Reports: No Symptoms Immunologic: Reports: No Symptoms Exam - Exam Exam: See Below - Vital Signs Vital Signs: Last Vital Signs Temp 96.3 F L 04/26/21 07:11 Pulse 78 04/26/21 07:11 Resp 18 04/26/21 07:11 BP 113/81 04/26/21 07:11 Pulse Ox 100 04/26/21 07:15 Weight: 154 lb 2 oz - Exam Quality Assessment: Central Line/PICC, DVT Prophylaxis General: Oriented, Cooperative, Sedated HEENT: PERRLA Neck: Supple, Trachea Midline Lungs: Clear to Auscultation, Normal Respiratory Effort Cardiovascular: Regular Rate, Regular Rhythm GI/Abdominal Exam: Other (Several well healed incisional scars. Right mid quadrant scar from iliostomy and left abdominal scar from colostomy. Incisional Hernia noted. Generalized tenderness. ) (Female) Exam: Deferred Rectal (Female) Exam: Deferred Back Exam: Normal Inspection Extremities: Normal Inspection, Normal Range of Motion Skin: Warm, Dry, Intact Neurological: Cranial Nerves Intact Neuro Extensive - Mental Status: Oriented x3 Neuro Extensive - Motor, Sensory, Reflexes: CN II-XII Intact Psychiatric: Labile Mood Sepsis Event Note - Evaluation Sepsis Screening Result: No Definite Risk - Focused Exam Vital Signs: Vital Signs Temp Pulse Resp BP BP Pulse Ox 04/26/21 07:15 100 04/26/21 07:11 96.3 F L 78 18 113/81 100 04/26/21 02:51 98.2 F 80 16 99/62 95 04/26/21 01:04 94 L 04/26/21 00:14 112/49 L 04/25/21 21:21 97.6 F 73 16 112/49 L 94 L 04/25/21 21:17 98 - Problem List (1) Partial small bowel obstruction SNOMED Code(s): 128237814 ICD Code: K56.600 - PARTIAL INTESTINAL OBSTRUCTION, UNSPECIFIED TO CAUSE Status: Acute Current Visit: Yes (2) Volvulus SNOMED Code(s): 4787805 ICD Code: K56.2 - VOLVULUS Status: Acute Current Visit: Yes Problem List Initiated/Reviewed/Updated: Yes Orders Last 24hrs: Active Orders 24 hr Category Date Time Status Activity as Tolerated [RC] .Routine Care 04/25/21 21:21 Active Antiembolic Devices [RC] .Routine Care 04/25/21 21:22 Active Communication Order [RC] Per Unit Routine Care 04/25/21 21:24 Active Overnight Pulse Oximetry [RC] Click to Edit Care 04/25/21 21:22 Active 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 [RC] Q4H Care 04/25/21 21:24 Active Verify Patient Consent Obtain [RC] ASDIRECTED Care 04/26/21 07:05 Active Vital Signs [RC] Q4H Care 04/25/21 21:21 Active Nothing Per Oral Diet [DIET] Diet 04/26/21 Breakfast Active ALPRAZolam [Xanax] Med 04/26/21 21:00 Active 2 mg PO BEDTIME Dextrose 5%-Lactated Ringers 1,000 ml Med 04/25/21 21:30 Active IV ASDIRECTED Ketamine [Ketalar] Med 04/26/21 07:15 Ordered See Dose Instructions IV ASDIRECTED Ketamine [Ketalar] Med 04/26/21 07:15 Ordered See Dose Instructions IV BOLUS Meropenem [Merrem] 500 mg Med 04/26/21 12:00 Ordered Sodium Chloride 0.9% [Normal Saline] 50 ml IV ONETIME Morphine Med 04/26/21 00:32 Active 2 - 4 mg IVPUSH Q2H PRN Naloxone [Narcan] Med 04/25/21 21:23 Active 0.04 mg IVPUSH Q3M PRN Non-Formulary Medication [NF Drug] Med 04/26/21 07:07 Once See Dose Instructions IV ONETIME ONE Non-Formulary Medication [NF Drug] Med 04/26/21 07:07 Once See Dose Instructions IV ONETIME ONE Ondansetron [Zofran] Med 04/25/21 21:23 Active 4 mg IVPUSH Q6H PRN Prazosin [Minpress] Med 04/26/21 21:00 Active 5 mg PO BEDTIME QUEtiapine [SEROqueL] Med 04/26/21 21:00 Active 200 mg PO BEDTIME QUEtiapine [SEROqueL] Med 04/26/21 21:00 Active 600 mg PO BEDTIME Tap Block [Tap Block, Pharmacy to Dose] Med 04/26/21 12:00 Once See Dose Instructions NERVRT ONETIME ONE diphenhydrAMINE [Benadryl] Med 04/25/21 21:23 Active 25 mg IVPUSH Q6H PRN diphenhydrAMINE [Benadryl] Med 04/25/21 21:23 Active 25 mg PO Q6H PRN Pulse Oximetry Continuous Monitoring [OM.PC] Routine Oth 04/25/21 21:22 Ordered Pulse Oximetry Continuous Monitoring [OM.PC] Routine Oth 04/25/21 21:24 Ordered SCD [Sequential Compression Device] [OM.PC] Routine Oth 04/25/21 21:22 Ordered Medication Orders Alprazolam (Alprazolam 0.5 Mg Tab) 2 mg PO BEDTIME [facility] Diphenhydramine HCl (Diphenhydramine 50 Mg/Ml Sdv) 25 mg IVPUSH Q6H PRN PRN Reason: Itching Last Admin: 04/26/21 00:30 Dose: 25 mg Documented by: CALLUM Diphenhydramine HCl (Diphenhydramine 25 Mg Cap) 25 mg PO Q6H PRN PRN Reason: Itching Dextrose/Lactated Ringer's (Dextrose 5%-Lactated Ringers) 1,000 mls @ 125 mls/hr IV ASDIRECTED BRIGID Last Admin: 04/26/21 04:25 Dose: 125 mls/hr Documented by: Infusion: 04/26/21 04:25 Dose: 125 mls/hr Documented by: Admin: 04/25/21 21:56 Dose: 125 mls/hr Documented by: CALLUM Morphine Sulfate (Morphine 2 Mg/Ml Syringe) 2 - 4 mg IVPUSH Q2H PRN PRN Reason: Pain Last Admin: 04/26/21 07:07 Dose: 2 mg Documented by: Admin: 04/26/21 04:19 Dose: 2 mg Documented by: CALLUM Naloxone HCl (Naloxone 0.4 Mg/Ml Sdv) 0.04 mg IVPUSH Q3M PRN PRN Reason: Respiratory Depression Ondansetron HCl (Ondansetron 4 Mg/2 Ml Sdv) 4 mg IVPUSH Q6H PRN PRN Reason: Nausea/Vomiting Prazosin HCl (Prazosin 1 Mg Cap) 5 mg PO BEDTIME BRIGID Quetiapine Fumarate (Quetiapine 300 Mg Tab) 600 mg PO BEDTIME BRIGID Quetiapine Fumarate (Quetiapine 100 Mg Tab) 200 mg PO BEDTIME BRIGID Assessment: Partial Small Bowel Obstruction Sigmoid Colon Volvulus SP RNY Gastric Bypass Chronic Diarrhea ADHD Pseudotumor Cerebri with UNDERWATER TRAPPER Shunt Migraine Headaches Seizure Disorder Asthma Bipolar disorder Borderline Personality Drug Overdose - intubated for 5 days History of liver failure History of Alcohol Abuse PTSD Sleep Apnea Plan: Scheduled: Exploratory Laparotomy for Release of Partial Small Bowel Obstruction and possible Small Bowel Resection and Possible Sigmoid Resection - General anesthesia - Case to Follow - 04/26/2021 - NPO - Vadim Nice MD Meropenem 500 mg IV test consultant to OR. Kat Condon 04/26/2021
[2021-04-26] MEDS ORDERED: hydrOXYzine HCL 100 MG/2 ML SDV IM PRN ×3 (08:29→16:00)
[2021-04-26] MEDS ORDERED: Bupivacaine 0.5%/EPINEPHrine 1:200,000 50 ML MDV ONE (08:54)
[2021-04-26] MEDS ORDERED: Meropenem 500 MG SDV ONE (08:54)
[2021-04-26] MEDS ORDERED: Ketamine 50 MG in Sodium Chloride 0.9% 49.5 ML IV SCH (09:00)
[2021-04-26] MEDS ORDERED: Rocuronium 50 MG/5 ML Vial ONE (09:03)
[2021-04-26] MEDS ORDERED: Glycopyrrolate 0.2 MG/ML 5 ML MDV ONE (09:03)
[2021-04-26] MEDS ORDERED: Neostigmine Methylsulfate 1 MG/ML 5 ML Syringe ONE (09:03)
[2021-04-26] MEDS ORDERED: Ondansetron 4 MG/2 ML SDV ONE (09:03)
[2021-04-26] MEDS ORDERED: fentaNYL 250 MCG/5 ML SDV ONE (09:03)
[2021-04-26] MEDS ORDERED: Dexamethasone 4 MG/ML SDV ONE (09:03)
[2021-04-26] MEDS ORDERED: Succinylcholine 200 MG/10 ML MDV ONE (09:03)
[2021-04-26] MEDS ORDERED: Propofol 200 MG/20 ML SDV ONE (09:03)
[2021-04-26] MEDS ORDERED: Meropenem 500 MG in Sodium Chloride 0.9% 50 ML IV ONE ×4 (12:00)
[2021-04-26] MEDS ORDERED: Magnesium Sulfate/Water 2 GM/50 ML BAG IV SCH (12:00)
[2021-04-26] MEDS ORDERED: Magnesium Sulfate 2.2 GM in Sodium Chloride 0.9% 250 ML IV ONE (12:00)
[2021-04-26] MEDS ORDERED: Ropivacaine 35 ML, dexAMETHasone 8 MG, EPINEPHrine 0.4 MG, Sodium Chloride 0.9% 42.6 ML NERVRT SCH ×4 (12:00)
[2021-04-26] MEDS ORDERED: Ondansetron 4 MG/2 ML SDV IVPUSH PRN ×2 (13:52→16:00)
[2021-04-26] MEDS ORDERED: diphenhydrAMINE 50 MG/ML SDV IVPUSH PRN (13:52)
[2021-04-26] MEDS ORDERED: fentaNYL 100 MCG/2 ML SDV ONE (13:52)
[2021-04-26] MEDS ORDERED: diphenhydrAMINE 25 MG Cap PO PRN (13:52)
[2021-04-26] MEDS ORDERED: Naloxone 0.4 MG/ML SDV IVPUSH PRN (13:52)
[2021-04-26] MEDS ORDERED: Naloxone 0.4 MG/ML SDV IV PRN (14:00)
[2021-04-26] MEDS: fentaNYL/Normal Saline 600 MCG/30 ML PCA Vial IV PRN (15:15)
[2021-04-26] MEDS ORDERED: ALPRAZolam 0.5 MG Tab PO PRN (15:27)
[2021-04-26] MEDS ORDERED: Albuterol/Ipratropium 3.0-0.5 MG/3 ML Neb Soln INH PRN (15:33)
[2021-04-26] MEDS ORDERED: Acetaminophen Soln 650 MG/20.3 ML UD Cup PO PRN (15:50)
[2021-04-26] MEDS ORDERED: Calcium Gluconate 10% 1 GM/10 ML SDV IVPUSH PRN (16:00)
[2021-04-26] MEDS ORDERED: Labetalol 20 MG/4 ML Syringe IVPUSH PRN (16:00)
[2021-04-26] MEDS ORDERED: MVI, Adult with Vitamin K 10 ML, Thiamine 200 MG, Zinc/Copper/Manganese/Selenium 1 ML i... IV SCH ×4 (16:00)
[2021-04-26] MEDS ORDERED: Metoclopramide 10 MG/2 ML SDV IVPUSH PRN (16:00)
[2021-04-26] MEDS: Acetaminophen Soln 650 MG/20.3 ML UD Cup PO SCH ×2 (16:39→23:00)
[2021-04-26] MEDS ORDERED: Pantoprazole 40 MG Vial IVPUSH SCH (18:00)
[2021-04-26] MEDS: Meropenem 500 MG in Sodium Chloride 0.9% 50 ML IV SCH ×2 (18:08→23:02)
[2021-04-26] MEDS: Cyclobenzaprine 10 MG Tab PO PRN (20:18)
[2021-04-26] MEDS ORDERED: ALPRAZolam 0.5 MG Tab PO SCH (21:00)
[2021-04-26] MEDS: Prazosin 1 MG Cap PO SCH (21:20)
[2021-04-26] MEDS: QUEtiapine 100 MG Tab PO SCH (21:23)
[2021-04-26] MEDS: diphenhydrAMINE 50 MG/ML SDV IVPUSH PRN (21:28)
[2021-04-27] MEDS: fentaNYL/Normal Saline 600 MCG/30 ML PCA Vial IV PRN (02:36)
[2021-04-27] MEDS ORDERED: Iopamidol 612 MG/ML 50 ML SDV PO ONE (03:04)
[2021-04-27] MEDS: diphenhydrAMINE 50 MG/ML SDV IVPUSH PRN (03:37)
[2021-04-27] MEDS: Dextrose 5%-Lactated Ringers 1,000 ML IV SCH (05:26)
[2021-04-27] MEDS: Meropenem 500 MG in Sodium Chloride 0.9% 50 ML IV SCH ×3 (05:27→18:14)
[2021-04-27] MEDS ORDERED: Dextrose 5%-Lactated Ringers 1,000 ML IV SCH (07:15)
[2021-04-27] MEDS: oxyCODONE 5 MG Tab PO PRN ×4 (08:27→21:05)
[2021-04-27] MEDS: Cyclobenzaprine 10 MG Tab PO PRN ×2 (08:28→16:29)
[2021-04-27] MEDS: Acetaminophen Soln 650 MG/20.3 ML UD Cup PO SCH ×2 (08:30→16:31)
[2021-04-27] MEDS: Celecoxib 200 MG Cap PO SCH ×2 (09:13→21:04)
[2021-04-27] MEDS: Potassium Phos in 0.9 % NaCl 15 MMOL in Premix Bag 1 BAG IV SCH ×8 (09:13→16:09)
--- NOTE | 2021-04-27 10:20 | CR ---
[facility] HISTORY: Postbariatric surgery FINDINGS: Patient swallowed water-soluble contrast. Upright views of the abdomen show no evidence of extravasation or obstruction. IMPRESSION: Status post bariatric surgery No extravasation or obstruction seen
[2021-04-27] MEDS: hydrOXYzine HCl 25 MG Tab PO PRN ×3 (10:30→18:25)
--- NOTE | 2021-04-27 12:44 | PN ---
DATE OF SERVICE: 04/27/2021 SUBJECTIVE: Comfort is postop day 1. Vital signs have been stable. She has been afebrile. Pain has been controlled with fentanyl RIPRAP MAN. Oral intake 885. Urine output via Fry catheter is 1820. SERENA drain put out 765 total, but only put out about 70 in the last 12 hours. LABORATORY TESTS: Hemoglobin 9.9. Potassium is 3.3, phosphorus is 2.4. REVIEW OF SYSTEMS: Remainder of review of systems negative for any pertinent positives and negatives. OBJECTIVE: GENERAL: Comfort Barton is a pleasant 40-year-old female. She is alert, orientated. VITAL SIGNS: TPR is 97.3, 83, 14. Blood pressure 119/74. HEENT: Negative. NECK: Supple. HEART: Regular rate and rhythm. LUNGS: Clear. ABDOMEN: Dressings dry and intact. SERENA drain intact draining a light pink drainage. Abdominal binder is on. EXTREMITIES: Without peripheral edema. ASSESSMENT: Exploratory laparotomy with sigmoid resection, incisional hernia repair x2, and excision of peritoneal implants x2. Date of procedure 04/26/2021. Surgeon: Vadim Nice MD. PLAN: 1. K-Phos 60 millimoles IV. 2. Potassium 20 mEq IV 1 time. 3. Discontinue Fry catheter. 4. Discontinue RIPRAP MAN and continuous pulse ox. 5. Oxycodone 5 mg q.4 hours p.r.n. pain. 6. Atarax 50 mg q.4 hours p.r.n. additional pain. 7. Step 2 gastric bypass diet without cereals. 8. May shower. 9. Decrease IV to 100 mL per hour. 10.Continue good pulmonary toilet. 11.We will evaluate p.r.n. or in a.m. Kat Pedro PA-C /[id number]
[2021-04-27] MEDS: Ondansetron 4 MG Tab.DIS PO PRN (14:40)
[2021-04-27] MEDS ORDERED: MVI, Adult with Vitamin K 10 ML, Thiamine 200 MG, Zinc/Copper/Manganese/Selenium 1 ML i... IV SCH ×4 (16:00)
[2021-04-27] MEDS ORDERED: Potassium Chloride 20 MEQ, Lidocaine 1% 2 ML in Sodium Chloride 0.9% 100 ML IV ONE (17:00)
[2021-04-27] MEDS: Formoterol/Mometasone 100-5 MCG 8.8 GM Inhaler IH SCH (21:03)
[2021-04-27] MEDS: QUEtiapine 100 MG Tab PO SCH (21:04)
[2021-04-27] MEDS: Pantoprazole 40 MG Tab.CR PO SCH (21:04)
[2021-04-27] MEDS: Zolpidem 5 MG Tab PO PRN (21:05)
[2021-04-27] MEDS: Prazosin 1 MG Cap PO SCH (21:05)
[2021-04-28] MEDS: Meropenem 500 MG in Sodium Chloride 0.9% 50 ML IV SCH ×3 (00:17→11:45)
[2021-04-28] MEDS: Acetaminophen Soln 650 MG/20.3 ML UD Cup PO SCH ×5 (00:17→23:28)
[2021-04-28] MEDS: oxyCODONE 5 MG Tab PO PRN ×4 (02:28→20:47)
[2021-04-28] MEDS: Ondansetron 4 MG Tab.DIS PO PRN (05:17)
[2021-04-28] MEDS: Formoterol/Mometasone 100-5 MCG 8.8 GM Inhaler IH SCH ×2 (07:27→20:48)
--- NOTE | 2021-04-28 07:59 | PN ---
DATE OF SERVICE: 04/28/2021 SUBJECTIVE: Comfort, she states her pain is controlled. She is passing flatus. Oral intake 985. States she is not having any difficulty swallowing. Output 2350. SERENA drain put out 170 mL of a clear drainage. Vital signs have been stable. REVIEW OF SYSTEMS: Remainder of review of systems negative for any pertinent positives and negatives. OBJECTIVE: GENERAL: Comfort is a pleasant 40-year-old female, alert and orientated. VITAL SIGNS: TPR 97.9, 74, 18, blood pressure 109/57. HEENT: Negative. NECK: Supple. HEART: Regular rate and rhythm. LUNGS: Clear. ABDOMEN: She has Aquacel dressing on, is clean and dry. Abdominal binder is on. SERENA drain as above. EXTREMITIES: Without peripheral edema. ASSESSMENT: Exploratory laparotomy with: 1. Reduction of small bowel volvulus and closure of internal hernia x2. 2. Rectosigmoid colon resection with coloproctostomy. 3. Excision of peritoneal nodule over omentum. 4. Excision of peritoneal nodule over small bowel mesentery. 5. Repair of recurrent incisional hernia. 6. Placement of Interceed mesh x2. POSTOPERATIVE DIAGNOSES: 1. Small bowel volvulus. 2. Sigmoid colon volvulus. 3. Recurrent incarcerated incisional hernia. 4. Peritoneal nodule 3 cm over omentum. 5. Peritoneal nodule 6 cm over small bowel mesentery. 6. Extensive intraabdominal adhesions. Date of procedure: 04/26/2021. PLAN: 1. Saline lock IV after next antibiotic and IV vitamins. 2. Colace 100 mg p.o. b.i.d. 3. Dulcolax 10 mg p.o. b.i.d. 4. Discontinue SEREAN drain. 5. Check CBC, CMP, mag, phos in a.m. 6. We will evaluate p.r.n. or in a.m. 7. Plan discharge in a.m. Kat Pedro PA-C /[id number]
[2021-04-28] MEDS ORDERED: Cyanocobalamin (Vitamin B12) 1,000 MCG/ML SDV IM ONE (09:00)
[2021-04-28] MEDS: Bisacodyl 5 MG Tab PO SCH ×2 (09:06→20:42)
[2021-04-28] MEDS: Docusate Sodium 100 MG Cap PO SCH ×2 (09:06→20:42)
[2021-04-28] MEDS: Celecoxib 200 MG Cap PO SCH ×2 (09:06→20:42)
[2021-04-28] MEDS: QUEtiapine 100 MG Tab PO SCH (20:41)
[2021-04-28] MEDS: Zolpidem 5 MG Tab PO PRN (20:42)
[2021-04-28] MEDS: Pantoprazole 40 MG Tab.CR PO SCH (20:42)
[2021-04-28] MEDS: Prazosin 1 MG Cap PO SCH (20:43)
[2021-04-29] MEDS: oxyCODONE 5 MG Tab PO PRN ×2 (05:55→10:25)
[2021-04-29 08:46] VITALS: BP 109/58; PULSE 74
[2021-04-29] MEDS: Acetaminophen Soln 650 MG/20.3 ML UD Cup PO SCH (08:48)
[2021-04-29] MEDS: Formoterol/Mometasone 100-5 MCG 8.8 GM Inhaler IH SCH (08:48)
[2021-04-29] MEDS: Bisacodyl 5 MG Tab PO SCH (08:49)
[2021-04-29] MEDS: Celecoxib 200 MG Cap PO SCH (08:49)
[2021-04-29] MEDS: Docusate Sodium 100 MG Cap PO SCH (08:49)
--- NOTE | 2021-04-30 12:18 | DISCH ---
ADMISSION DIAGNOSES: Partial small bowel obstruction and internal hernia, sigmoid colon volvulus, status post Sade-en-Y gastric bypass surgery, unspecified surgical malabsorption, B12 deficiency, vitamin D deficiency, chronic low potassium, asthma, chronic diarrhea, irritable bowel syndrome, headaches, history of pseudotumor cerebri with ventriculoperitoneal shunt, attention deficit hyperactivity disorder, seizure disorder, bipolar disorder, borderline personality, history of liver failure, posttraumatic stress disorder. DISCHARGE DIAGNOSES: Exploratory laparotomy with: 1. Reduction of small bowel volvulus and closure of internal hernia x2. 2. Rectosigmoid colon resection with coloproctostomy. 3. Excision of peritoneal nodule over omentum. 4. Excision of peritoneal nodule over small bowel mesentery. 5. Repair of recurrent incisional hernia. 6. Placement of Interceed mesh x2. POSTOPERATIVE DIAGNOSES: 1. Small bowel volvulus. 2. Sigmoid colon volvulus. 3. Recurrent incarcerated incisional hernia. 4. Peritoneal nodule, 3 cm, over omentum. 5. Peritoneal nodule, 6 cm, over small bowel mesentery. 6. Extensive intra-abdominal adhesions. 7. Date of procedure 04/26/2021. Surgeon: Vadim Nice MD. HISTORY: Comfort Barton is a 40-year-old female, [facility] [place] [place] above chief complaints after above diagnoses. After preoperative evaluation, discussion of possible risks and possible complications, she wished to proceed with surgical procedure. HOSPITAL COURSE: Comfort had her surgery on 04/26/2021. She had no operative complications. On postop day 1, her VENEER TRIMMER was discontinued. She was started on a step 2 gastric bypass diet without cereal. Oral pain medication. She was up ambulating. Vital signs were stable. Pain was well controlled. On postop day 2, she was started on bowel stimulation. Her oral intake, vital signs were all within normal limits and activity was fair. On postop day 3, she was able to be discharged to home without any complications. PHYSICAL EXAMINATION: GENERAL: Comfort Barton is a pleasant 40-year-old female, alert, oriented. VITAL SIGNS: Height 5 feet 1.8 inches, weight is 154 pounds. TPR 97.4, 89, 18, blood pressure 83/55. HEENT: Negative. NECK: Supple. HEART: Regular rate and rhythm. LUNGS: Clear. ABDOMEN: Aquacel dressings on. SERENA drain was discontinued yesterday. 4 x 4 over SERENA drain site. Abdominal binder is on. Aquacel dressing will be removed prior to discharge. EXTREMITIES: Without peripheral edema. DISPOSITION: Discharged to home. CONDITION: Stable and improving. FOLLOWUP: Appointment with Kat Pedro PA-C, on 05/08/2021, at 10:30 a.m. HOME MEDICATIONS: New are Celebrex 200 mg p.o. b.i.d., #28; oxycodone 5 mg p.o. q.4 hours p.r.n., #12. She is to resume her home medications of acetaminophen 1000 mg p.o. q.8 hours scheduled, Apresoline p.o. t.i.d., Seroquel 800 mg p.o. at bedtime, prazosin 5 mg p.o. at bedtime, Zonegran 300 mg p.o. b.i.d., chewable multivitamins b.i.d., vitamin B complex 1 daily, Ambien 10 mg at bedtime p.r.n. sleep, Depo-Provera injection for control she gets every 3 months, acetonide 0.1% ointment apply topical b.i.d., senna 1 tab p.o. b.i.d., MiraLAX 17 g p.o. b.i.d., Protonix 20 mg p.o. daily, Patanol 0.1% ophthalmic solution 1 drop to each eye twice a day, Singulair 10 mg p.o. bedtime, Elocon 0.1% cream topical, Synthroid 75 p.o. daily, iron polysaccharide complex liquid 2.5 mL p.o. b.i.d., Flonase 2 inhalations b.i.d., Advair 250/50 one inhalation every 12 hours, vitamin B12, 1000 sublingual daily, vitamin D3, 5000 units daily, Diprolene 0.05% two puffs inhalation every 4 hours p.r.n., Proventil 3 mL inhalation every 4 hours p.r.n., Seroquel. DIET: Step 2 gastric bypass diet without cereal for 2 weeks until 05/11/2021. Drink 8 to 10 glasses of water a day. ACTIVITY: No lifting greater than 10 pounds for 2 weeks. Walk 6 times daily inside your home. Driving: Do not drive for 1 week. Shower/bathing: May shower. Notify provider if any fever, increased pain, swelling, redness, drainage, nausea, or vomiting. Incision care: Keep operative site clean and dry. Wear abdominal binder for 6 weeks. OTHER SPECIAL INSTRUCTION: Use incentive spirometer 10 times every hour while awake. Work slip given that Comfort is unable to work until further notice. We will evaluate at followup appointment on 05/08/2021. /[id number]
--- NOTE | 2021-05-07 12:39 | OR ---
DATE OF PROCEDURE: 04/26/2021 SURGEON: Vadim Nice MD PREOPERATIVE DIAGNOSES: 1. Small bowel obstruction. 2. Probable sigmoid volvulus. POSTOPERATIVE DIAGNOSES: 1. Small bowel obstruction secondary to small bowel volvulus. 2. Sigmoid colon volvulus. 3. Recurrent incarcerated incisional hernia. 4. Peritoneal nodule overlying the omentum. 5. Peritoneal nodule overlying mid small bowel mesentery. 6. Extensive intraabdominal adhesions. PROCEDURES PERFORMED: Exploratory laparotomy with: 1. Reduction of small bowel volvulus and closure of internal hernia (80177). 2. Rectosigmoid colon resection with coloproctostomy (54545). 3. Excision of peritoneal nodule overlying omentum (70931). 4. Excision of peritoneal nodule overlying small bowel mesentery (46428). 5. Repair of recurrent incarcerated incisional hernia (45175). 6. Placement of Interceed mesh x2 to displace pelvic and abdominal wall from adjacent viscera to limit recurrent adhesion formation (64265). ANESTHESIA: General. LEAD FRONT DESK AGENT: Kat Pedro PA-C INDICATIONS FOR PROCEDURE: The patient was transferred from [facility] in [place] with a picture of small bowel obstruction. On CT scan, she also appears to have sigmoid colon volvulus. After preoperative evaluation and discussion, she wished to proceed with exploratory laparotomy with small and large bowel resection as indicated, reduction of any volvulus that might be encountered, and other procedures as indicated based on intraoperative findings. Potential risks of the procedure including bleeding, infection, leaks from various GI tract closures, and problems with bowel obstruction recurring over time were all reviewed, and the patient wishes to proceed. DETAILS OF PROCEDURE: The patient was taken to the operating room, and after general endotracheal anesthesia was induced, a Fry catheter was inserted and the abdomen prepped and draped. A midline incision from the area just below the umbilicus to roughly a handsbreadth below the xiphoid was made and carried down through the full thickness of the abdominal wall. Upon entering the peritoneal cavity, the patient was noted to have a large amount of small bowel which had a somewhat dusky appearance consistent with some venous hypertension. Initial exploration revealed a significant small bowel volvulus between the mesentery underlying the Sade limb and the remaining small bowel, this had been passed from a right to leftward direction. This was reduced at this point, and at that point, the bowel wall assumed a pink, very satisfactory appearance. The mesenteric defect was then closed at that point with a running 2-0 silk stitch. Additional exploration revealed peritoneal implants of uncertain nature involving the surface of the omentum. This measured around 3 cm. This was excised and sent as a separate specimen. A separate peritoneal implant again of uncertain nature measuring 6 cm was located over the mid small bowel mesentery. This was likewise excised and sent as a histologic specimen. The patient was noted, per the preoperative CT scan, to have a sigmoid volvulus that appeared to have somewhat chronic. It was notable that the colon approaching the point of volvulus was markedly distended, and overall, this was suggestive of a chronic partial obstruction at that level. The detorsed sigmoid colon and upper rectum were then divided with GRACE dolly and the underlying mesentery divided with GRACE dolly as well. The anastomosis between the proximal sigmoid colon and rectum was then accomplished with 2 internal firings of the Endo-GRACE 60 mm stapler. The common opening was closed transversely with the same stapler, the angles anastomosed, and the mesenteric defect approximated with some 3-0 Vicryl stitch along with fibrin sealant. Care was taken to avoid any spill during the course of that procedure, and at the end of the bowel resection procedure, some antibiotic-soaked sponges, which had been placed along the edges of the incision and into the adjacent peritoneal edges were removed, and new gowns and gloves were obtained. This was all in an attempt to prevent any contamination of the patient's ventriculoperitoneal shunt which was otherwise in place in the right mid abdomen somewhat posteriorly. At this point, no further major problems were noted. It was noted that during the course of the examination, the patient had recurrent incisional hernia containing some preperitoneal fat and omentum. This was dissected free and removed at that time. Interceed mesh x2 was then placed underneath the incision, and from there, down along the pelvic and abdominal wall to prevent recurrent adhesion formation. The midline fascia was then approximated with a #2 Vicryl stitch, the subcutaneous tissue with 2 layers of 3-0 and 4-0 Vicryl stitch, and the skin with dolly. Prior to closure, bilateral transversus abdominis plane blocks had been placed, and the patient was taken to the recovery room in satisfactory condition. There were no evident complications. Physician assistant produce manager, Kat Pedro, played an essential role in assisting in this case, helping to position the patient, retract structures as needed, as well as suturing and cutting sutures when indicated. Her presence improved the patient's safety and decreased the operative time. Vadim Nice MD /[id number]
== END 2021-04-29 10:40 | disposition home or self-care (01) | DRG 330 ==
LOC: JP.MS 21:15
PROVIDERS: ADMIT Surgery; ATTEND Surgery
PROC: 0DS80ZZ Reposition Small Intestine, Open Approach (ICD-10-PCS; principal; 2021-04-25)
PROC: 0DQV0ZZ Repair Mesentery, Open Approach (ICD-10-PCS; 2021-04-25)
PROC: 0DBW0ZZ Excision of Peritoneum, Open Approach (ICD-10-PCS; 2021-04-25)
PROC: 0DBW0ZZ Excision of Peritoneum, Open Approach (ICD-10-PCS; 2021-04-25)
PROC: 0WQF0ZZ Repair Abdominal Wall, Open Approach (ICD-10-PCS; 2021-04-25)
PROC: 0D1N0ZP Bypass Sigmoid Colon to Rectum, Open Approach (ICD-10-PCS; 2021-04-25)
PROC: 0DBP0ZZ Excision of Rectum, Open Approach (ICD-10-PCS; 2021-04-25)
PROC: 0DBN0ZZ Excision of Sigmoid Colon, Open Approach (ICD-10-PCS; 2021-04-25)
PROC: 3E0M05Z Introduction of Adhesion Barrier into Peritoneal Cavity, Open Approach (ICD-10-PCS; 2021-04-25)
DX: K56.2 Volvulus (principal); K43.0 Incisional hernia with obstruction, without gangrene; K91.2 Postsurgical malabsorption, not elsewhere classified; K56.51 Intestinal adhesions [bands], with partial obstruction; K66.8 Other specified disorders of peritoneum; K46.9 Unspecified abdominal hernia without obstruction or gangrene; E55.9 Vitamin D deficiency, unspecified; E53.8 Deficiency of other specified B group vitamins; J45.909 Unspecified asthma, uncomplicated; K58.0 Irritable bowel syndrome with diarrhea; R51.9 Headache, unspecified; F90.9 Attention-deficit hyperactivity disorder, unspecified type; G40.909 Epilepsy, unspecified, not intractable, without status epilepticus; F31.9 Bipolar disorder, unspecified; F43.10 Post-traumatic stress disorder, unspecified; H91.90 Unspecified hearing loss, unspecified ear; H54.7 Unspecified visual loss; G47.30 Sleep apnea, unspecified; K59.09 Other constipation; K21.9 Gastro-esophageal reflux disease without esophagitis; F41.0 Panic disorder [episodic paroxysmal anxiety]; E03.9 Hypothyroidism, unspecified; E66.9 Obesity, unspecified; D64.9 Anemia, unspecified; G93.2 Benign intracranial hypertension; Z98.2 Presence of cerebrospinal fluid drainage device; Z88.6 Allergy status to analgesic agent; Z88.1 Allergy status to other antibiotic agents; Z88.8 Allergy status to other drugs, medicaments and biological substances; Z68.28 Body mass index [BMI] 28.0-28.9, adult; Z91.09 Other allergy status, other than to drugs and biological substances; Z91.048 Other nonmedicinal substance allergy status; Z79.890 Hormone replacement therapy; Z79.899 Other long term (current) drug therapy
CPT/HCPCS: 36415; 74240; 74240-26; 80053; 82728; 83735; 84100; 85025; 85027; 88302; 88305; 88307; 94640; 94762; A9270-GY; C9113; J0171; J0330; J1100; J1170; J1200; J1642; J2020; J2185; J2270; J2405; J2704; J2710; J2795; J3010; J3410; J3411; J3420; J3475; J3480; J3490; J7050; J7121; Q9967

== ENCOUNTER 2021-05-03 18:20 | Inpatient (IN) | payer OTHER ==
--- NOTE | 2021-05-03 19:21 | EDM.PDOC ---
ED HPI GENERAL MEDICAL PROBLEM - General Chief Complaint: Abdominal Pain Stated Complaint: VIA [facility] Time Seen by Provider: 05/03/21 19:15 Source of Information: Reports: Patient, EMS, Old Records History Limitations: Reports: No Limitations - History of Present Illness INITIAL COMMENTS - FREE TEXT/NARRATIVE: Stan is a 40-year-old female who was transferred from [facility] to our facility for admission of a small bowel obstruction. The patient is normally cared for by Dr. Kevin Nice and was accepted in transfer by Dr. Velasco to the ER for evaluation. The patient had a full work-up including labs, CT of the chest with angio and CT of the abdomen and pelvis with contrast demonstrating no evidence for pulmonary emboli because she was having significant shortness of breath but she does have a bowel obstruction at the ileocolonic anastomosis. The patient initially started having abdominal pain and symptoms of a small bowel obstruction 10 days ago and was seen and evaluated in [place] where she lives with her parents. She was transferred here and Dr. Nice took her to the operating room to correct several hernias and lyse adhesions. She had been doing better until yesterday when she started having a distended abdomen, nausea, decreased appetite, and shortness of breath. She went into significant dyspnea and her mom called 911 who took her to [facility] for evaluation. Again she was found to have a high-grade obstruction at the ileocolonic anastomosis with significant dilation of the proximal small bowel which is fluid-filled. Abdomen Pain Score (Numeric/FACES): 7 - Related Data Allergies Allergy/AdvReac Type Severity Reaction Status Date / Time metaxalone [From Skelaxin] Allergy Severe Difficulty Verified 05/03/21 18:42 Breathing hydromorphone Allergy Intermediate Itching Verified 05/03/21 18:42 acetaminophen Allergy Cannot Verified 05/03/21 18:42 Remember acetazolamide Allergy Cannot Verified 05/03/21 18:42 [From Diamox Sequels] Remember adhesive tape Allergy Cannot Verified 05/03/21 18:42 Remember aspartame Allergy Cannot Verified 05/03/21 18:42 Remember cephalexin [From Keflex] Allergy Rash Verified 05/03/21 18:42 escitalopram Allergy Rash Verified 05/03/21 18:42 furosemide [From Lasix] Allergy Cannot Verified 05/03/21 18:42 Remember gabapentin Allergy Rash Verified 05/03/21 18:42 ibuprofen Allergy Rash Verified 05/03/21 18:42 lamotrigine Allergy Rash Verified 05/03/21 18:42 oxcarbazepine Allergy Itching Verified 05/03/21 18:42 paroxetine Allergy Hives Verified 05/03/21 18:42 soap Allergy Rash Verified 05/03/21 18:42 sumatriptan Allergy Wheezing Verified 05/03/21 18:42 topiramate Allergy Rash Verified 05/03/21 18:42 venlafaxine Allergy Wheezing Verified 05/03/21 18:42 dust mite Allergy Cannot Uncoded 05/03/21 18:42 Remember Home Meds: Home Meds Albuterol [Proventil HFA] 3 ml INH Q4H PRN 05/22/17 [History] Betamethasone/Propylene Glyc [Diprolene 0.05%] 1 applic TP BID 05/22/17 [History] Cyanocobalamin (Vitamin B-12) [Vitamin B-12] 1,000 mcg SL DAILY 05/22/17 [History] Fluticasone Propion/Salmeterol [Advair 250-50 Diskus] 1 inh IH Q12H 05/22/17 [History] Fluticasone Propionate [Flonase] 2 inh INH BID 05/22/17 [History] Levothyroxine Sodium [Synthroid] 75 mcg PO DAILY 05/22/17 [History] Mometasone Furoate [Elocon 0.1% Crm] 1 applic TOP DAILY 05/22/17 [History] Montelukast [Singulair] 10 mg PO BEDTIME 05/22/17 [History] Olopatadine [Patanol 0.1% Ophth Soln] 1 drop EYEBOTH DAILY 05/22/17 [History] Pantoprazole Sodium [Protonix] 20 mg PO DAILY 05/22/17 [History] Pediatric Multivitamin Comb#30 [Gummies Children Multivitamin] 1 each PO BID 05/22/17 [History] Prazosin HCl [Prazosin] 5 mg PO BEDTIME 05/22/17 [History] QUEtiapine [SEROquel] 300 mg PO BEDTIME 05/22/17 [History] Sennosides [Senna] 1 tab PO BID 05/22/17 [History] Zolpidem Tartrate [Ambien] 10 mg PO BEDTIME PRN 05/22/17 [History] Zonisamide [Zonegran] 300 mg PO BID 05/22/17 [History] Albuterol [Ventolin HFA] 2 puff INH Q4H PRN 05/27/17 [History] medroxyPROGESTERone Acetate [Depo-Provera] 1 injection IM .Q3MO 05/27/17 [History] Biotin 10 mg PO DAILY 06/24/17 [History] Cholecalciferol (Vitamin D3) [Vitamin D3] 5,000 unit PO DAILY 06/24/17 [History] Iron Polysaccharide Complex/D3 [Novaferrum 125 Liquid] 2.5 ml PO BID 06/24/17 [History] Triamcinolone Acetonide [Triamcinolone Acetonide 0.1% Oint] 1 applic TOP BID 06/24/17 [History] Vitamin B Complex [B Complex] 1 each PO DAILY 06/24/17 [History] Polyethylene Glycol 3350 [MiraLAX] 17 gm PO BID #60 packet 07/09/17 [Rx] Prazosin HCl [Prazosin] 5 mg PO BEDTIME 04/25/21 [History] QUEtiapine Fumarate [Seroquel] 800 mg PO BEDTIME 04/25/21 [History] ALPRAZolam [Alprazolam] 2 mg PO TID 04/26/21 [History] Acetaminophen [Tylenol] 1,000 mg PO Q8H cup 04/29/21 [Rx] Celecoxib [CeleBREX] 200 mg PO BID #28 cap 04/29/21 [Rx] oxyCODONE 5 mg PO Q4H PRN #12 tablet 04/29/21 [Rx] Past Medical History HEENT History: Reports: Allergic Rhinitis, Hard of Hearing, Impaired Vision, Other (See Below) Other HEENT History: intracranal pressure Respiratory History: Reports: Asthma, Sleep Apnea, Other (See Below) Other Respiratory History: 1998 tx for tb Gastrointestinal History: Reports: Cholelithiasis, Chronic Diarrhea, GERD, Hiatal Hernia, Irritable Bowel Syndrome, Other (See Below) Other Gastrointestinal History: Bowel Obstruction October in [place] Genitourinary History: Reports: None SECURITY SUPPORT ANALYST History: Reports: None Musculoskeletal History: Reports: None Neurological History: Reports: Headaches, Chronic Psychiatric History: Reports: Anxiety, Depression, Panic Attack, PTSD Endocrine/Metabolic History: Reports: Hypothyroidism, Obesity/BMI 30+ Hematologic History: Reports: Anemia, B12 Deficiency, Iron Deficiency Immunologic History: Reports: None Oncologic (Cancer) History: Reports: None Dermatologic History: Reports: Other (See Below) Other Dermatologic History: dermititis - Infectious Disease History Infectious Disease History: Reports: Chicken Pox - Past Surgical History HEENT Surgical History: Reports: Other (See Below) Other HEENT Surgeries/Procedures: vp of global marketing shunt Cardiovascular Surgical History: Reports: None Respiratory Surgical History: Reports: Lung Biopsies, Other (See Below) Other Respiratory Surgeries/Procedures: benign nodule removed 10/11 right lung GI Surgical History: Reports: Bariatric Procedure, Esophageal Dilatation, Alessandra Fundoplication, Other (See Below) Other GI Surgeries/Procedures: Recent SBO surgery with twisted bowel and hernia surgery. Female Surgical History: Reports: Breast Reduction Endocrine Surgical History: Reports: None Neurological Surgical History: Reports: None Musculoskeletal Surgical History: Reports: Other (See Below) Other Musculoskeletal Surgeries/Procedures:: cyst of tailbone Oncologic Surgical History: Reports: None Dermatological Surgical History: Reports: None Social & Family History - Family History Family Medical History: No Pertinent Family History - Tobacco Use Tobacco Use Status *Q: Never Tobacco User Second Hand Smoke Exposure: No - Caffeine Use Caffeine Use: Reports: Soda - Recreational Drug Use Recreational Drug Use: No ED ROS GENERAL - Review of Systems Review Of Systems: See Below Constitutional: Reports: Malaise, Diaphoresis, Decreased Appetite HEENT: Reports: No Symptoms Respiratory: Reports: Shortness of Breath Cardiovascular: Reports: No Symptoms Endocrine: Reports: No Symptoms GI/Abdominal: Reports: Abdominal Pain, Decreased Appetite, Distension, Nausea : Reports: No Symptoms Musculoskeletal: Reports: No Symptoms Skin: Reports: No Symptoms Neurological: Reports: No Symptoms Psychiatric: Reports: No Symptoms Hematologic/Lymphatic: Reports: No Symptoms Immunologic: Reports: No Symptoms ED EXAM, GI/ABD - Physical Exam Exam: See Below Exam Limited By: No Limitations General Appearance: Alert, Anxious, Mild Distress, Moderate Distress Throat/Mouth: Normal Inspection, Normal Oropharynx, Normal Voice, No Airway Compromise Head: Atraumatic, Normocephalic Neck: Normal Inspection, Supple Respiratory/Chest: No Respiratory Distress, Lungs Clear, Other (Splinted respirations secondary to abdominal distention) Cardiovascular: Normal Peripheral Pulses, Regular Rate, Rhythm, No Murmur, Tachycardia GI/Abdominal Exam: Distended, Guarding, Rigid, Tender (Diffusely tender), Abnormal Bowel Sounds (Markedly diminished) Back Exam: Normal Inspection Extremities: Normal Inspection Neurological: Alert, Oriented, Normal Cognition, No Motor/Sensory Deficits Psychiatric: Normal Affect, Anxious Lymphatic: No Adenopathy Course - Vital Signs Last Recorded V/S: Last Vital Signs Temp 36.1 C 05/03/21 18:40 Pulse 116 H 05/03/21 18:40 Resp 14 05/03/21 18:40 BP 126/94 H 05/03/21 18:40 Pulse Ox 92 L 05/03/21 18:40 - Re-Assessments/Exams Free Text/Narrative Re-Assessment/Exam: 05/03/21 19:[address] Velasco who admitted the patient for to the hospital in preparation for surgery tomorrow Departure - Departure Time of Disposition: 19:22 Disposition: Admitted As Inpatient 66 Clinical Impression: Small bowel obstruction, Status post gastric bypass for obesity - Discharge Information Referrals: PCP,None [Primary Care Provider] - Sepsis Event Note (ED) - Evaluation Sepsis Screening Result: No Definite Risk - Focused Exam Vital Signs: Vital Signs Temp Pulse Resp BP Pulse Ox 05/03/21 18:40 36.1 C 116 H 14 126/94 H 92 L 05/03/21 18:34 36.1 C 116 H 14 126/94 H 92 L - Problem List & Annotations (1) Status post gastric bypass for obesity SNOMED Code(s): 214632060, 509755094, 254678461, 207585547 Code(s): Z98.84 - BARIATRIC SURGERY STATUS Status: Chronic Current Visit: Yes (2) Small bowel obstruction SNOMED Code(s): 201816576 Code(s): K56.609 - UNSP INTESTNL OBST, UNSP TO PARTIAL VERSUS COMPLETE OBST Status: Acute Current Visit: Yes - Problem List Review Problem List Initiated/Reviewed/Updated: Yes
[2021-05-03] MEDS ORDERED: fentaNYL 100 MCG/2 ML SDV IVPUSH PRN (20:01)
[2021-05-03] MEDS: Morphine 2 MG/ML SYRINGE IVPUSH PRN ×2 (20:13→21:43)
[2021-05-03] MEDS: Ondansetron 4 MG/2 ML SDV IVPUSH PRN (20:34)
[2021-05-03] MEDS: Sodium Chloride 0.9% 1,000 ML IV SCH (20:38)
[2021-05-03] MEDS ORDERED: Scopolamine 1.5 MG Transdermal Patch TOP PRN (20:54)
[2021-05-03] MEDS ORDERED: Promethazine 25 MG/ML SDV IV PRN (20:57)
[2021-05-03] MEDS ORDERED: diphenhydrAMINE 25 MG Cap PO PRN (20:59)
[2021-05-03] MEDS ORDERED: diphenhydrAMINE 50 MG/ML SDV IV PRN (20:59)
[2021-05-03] MEDS: Zolpidem 5 MG Tab PO PRN (21:33)
[2021-05-03] MEDS: QUEtiapine 100 MG Tab PO SCH (21:34)
[2021-05-03] MEDS ORDERED: Sodium Chloride 0.9% 50 ML ONE (21:40)
[2021-05-04] MEDS: Morphine 2 MG/ML SYRINGE IVPUSH PRN ×7 (01:34→21:34)
[2021-05-04] MEDS: Ondansetron 4 MG/2 ML SDV IVPUSH PRN (04:36)
[2021-05-04] MEDS: Sodium Chloride 0.9% 1,000 ML IV SCH ×2 (05:11→16:27)
[2021-05-04] MEDS: Check scopolamine patch SCH ×2 (08:49→08:52)
[2021-05-04] MEDS ORDERED: Bupivacaine 0.5%/EPINEPHrine 1:200,000 50 ML MDV ONE (11:30)
[2021-05-04] MEDS ORDERED: Glycopyrrolate 0.2 MG/ML 5 ML MDV ONE (11:35)
[2021-05-04] MEDS ORDERED: Ondansetron 4 MG/2 ML SDV ONE (11:35)
[2021-05-04] MEDS ORDERED: Neostigmine Methylsulfate 1 MG/ML 5 ML Syringe ONE (11:35)
[2021-05-04] MEDS ORDERED: Rocuronium 50 MG/5 ML Vial ONE (11:35)
[2021-05-04] MEDS ORDERED: Succinylcholine 200 MG/10 ML MDV ONE (11:35)
[2021-05-04] MEDS ORDERED: Propofol 200 MG/20 ML SDV ONE (11:35)
[2021-05-04] MEDS ORDERED: Dexamethasone 4 MG/ML SDV ONE (11:35)
[2021-05-04] MEDS ORDERED: fentaNYL 250 MCG/5 ML SDV ONE ×2 (11:37→14:07)
[2021-05-04] MEDS: metroNIDAZOLE/Normal Saline 500 MG in Premix Bag 1 BAG IV ONE ×2 (12:07→12:11)
[2021-05-04] MEDS ORDERED: Clindamycin Phosphate 900 MG in Sodium Chloride 0.9% 100 ML IV ONE (13:00)
[2021-05-04] MEDS ORDERED: Ropivacaine 32 ML, dexAMETHasone 8 MG, EPINEPHrine 0.4 MG, Sodium Chloride 0.9% 45.6 ML NERVRT SCH ×4 (13:00)
[2021-05-04] MEDS ORDERED: ceFAZolin 2 GM in Sodium Chloride 0.9% 50 ML IV ONE (13:00)
[2021-05-04] MEDS ORDERED: Meropenem 500 MG SDV ONE (14:34)
[2021-05-04] MEDS ORDERED: Lactated Ringers 1,000 ML ONE (14:48)
--- NOTE | 2021-05-04 16:13 | PN ---
DATE OF SERVICE: 05/04/2021 SUBJECTIVE: Patient doing well. Pain is well controlled. No nausea, vomiting, shortness of breath, or chest pain. OBJECTIVE: VITAL SIGNS: Stable. CARDIOVASCULAR: Regular rhythm and rate. RESPIRATORY: Lungs are clear to auscultation bilaterally. ABDOMEN: Incision healing well. Distended. ASSESSMENT AND PLAN: To the OR for exploratory laparotomy. The patient's status is not improved. She remains stable with very minimal pain. However, I do not feel this will resolve without surgical intervention. We again discussed risks, benefits, alternatives, limitations including but not limited to infection, bleeding, chronic wounds, chronic pain, possibility of ostomy, abscess formation, bowel injury, respiratory and cardiovascular issues and other risks not listed here. The patient understands these risks and wishes to proceed. Macario Velasco MD /[id number]
--- NOTE | 2021-05-04 16:37 | CONS ---
DATE OF SERVICE: 05/03/2021 REFERRING PHYSICIAN: CONSULTING PHYSICIAN: Macario Velasco MD REASON FOR CONSULTATION: Abdominal pain. HISTORY OF PRESENT ILLNESS: A 40-year-old female who is seen in [facility] and subsequently transferred for small-bowel obstruction. The patient underwent an operation by Dr. Nice approximately one week ago. However, these records are not available, but this seems consistent with repair of internal hernia. The patient has abdominal pain which suggests a partial small-bowel obstruction. The patient is doing well. Pain is 1 to 2/10. Mild nausea. No vomiting, shortness of breath, or chest pain. PAST MEDICAL HISTORY: Quite extensive. The patient is on approximately 35 medications. 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 SOCIAL HISTORY: She is not a smoker. FAMILY HISTORY: Noncontributory. REVIEW OF SYSTEMS: GENERAL: Appropriate for condition. HEENT: No symptoms. RESPIRATORY: No shortness of breath. CARDIOVASCULAR: No chest pain. ENDOCRINE: No significant symptoms. MUSCULOSKELETAL: No symptoms. SKIN: No symptoms. PSYCHIATRIC: No obvious anxiety. The remainder review of systems is reviewed and is negative. PHYSICAL EXAMINATION: VITAL SIGNS: Temperature 96.9, blood pressure 109/62, pulse 123, respirations 16, 92% on 2 L. GENERAL: The patient is resting comfortably. HEENT: Pupils are equal. NECK: Supple. LUNGS: Clear. CARDIOVASCULAR: Regular rhythm and rate. RESPIRATORY: Lungs are clear to consultation bilaterally. ABDOMEN: Bowel sounds are positive. Mildly distended. EXTREMITIES: Full range of motion. NEUROLOGICAL: Oriented x3. PSYCHIATRIC: No gross depression. LABORATORY DATA: White blood cell count is normal. IMAGING: I did review the CT scan. ASSESSMENT AND PLAN: This suggests a partial small-bowel obstruction. The patient will be admitted overnight for observation. If she require surgical intervention, we will re- evaluate in the a.m. We discussed risks, benefits, alternatives, and limitations of this plan. Macario Velasco MD /[id number]
[2021-05-04] MEDS ORDERED: Phenol/Sodium Phenolate Spray 180 ML Bottle MUCMEM PRN (19:33)
[2021-05-04] MEDS: QUEtiapine 100 MG Tab PO SCH (21:26)
[2021-05-04] MEDS: Zolpidem 5 MG Tab PO PRN (21:33)
[2021-05-05] MEDS: Sodium Chloride 0.9% 1,000 ML IV SCH ×3 (00:01→16:15)
[2021-05-05] MEDS: Morphine 2 MG/ML SYRINGE IVPUSH PRN ×3 (06:27→19:45)
[2021-05-05] MEDS: Check scopolamine patch SCH (08:09)
[2021-05-05] MEDS: Ondansetron 4 MG/2 ML SDV IVPUSH PRN ×2 (12:07→19:45)
[2021-05-05] MEDS: Zolpidem 5 MG Tab PO PRN (21:25)
[2021-05-05] MEDS: QUEtiapine 100 MG Tab PO SCH (21:25)
[2021-05-06] MEDS: Sodium Chloride 0.9% 1,000 ML IV SCH ×3 (00:16→17:44)
[2021-05-06] MEDS: Ondansetron 4 MG/2 ML SDV IVPUSH PRN ×2 (06:04→15:44)
[2021-05-06] MEDS: Morphine 2 MG/ML SYRINGE IVPUSH PRN ×6 (06:04→22:10)
[2021-05-06] MEDS ORDERED: Bupivacaine 0.5% 50 ML MDV ONE (07:03)
[2021-05-06] MEDS ORDERED: Lidocaine 1% 50 ML MDV ONE (07:03)
[2021-05-06] MEDS ORDERED: Lidocaine 1% with EPINEPHrine 1:100,000 50 ML MDV ONE (07:04)
[2021-05-06] MEDS ORDERED: fentaNYL 100 MCG/2 ML SDV ONE (07:25)
[2021-05-06] MEDS ORDERED: Midazolam 1 MG/ML 2 ML SDV ONE (07:25)
[2021-05-06] MEDS ORDERED: Propofol 200 MG/20 ML SDV ONE (07:25)
[2021-05-06] MEDS ORDERED: Ropivacaine 32 ML, dexAMETHasone 8 MG, EPINEPHrine 0.4 MG, Sodium Chloride 0.9% 45.6 ML NERVRT SCH ×4 (08:00)
[2021-05-06] MEDS: Celecoxib 200 MG Cap PO SCH ×2 (09:20→21:36)
[2021-05-06] MEDS: Check scopolamine patch SCH (10:17)
--- NOTE | 2021-05-06 12:26 | PN ---
DATE OF SERVICE: 05/05/2021 SUBJECTIVE: The patient is doing well. Pain is well controlled. No nausea, vomiting, shortness of breath, or chest pain. OBJECTIVE: VITAL SIGNS: Stable. CARDIOVASCULAR: Regular rhythm and rate. RESPIRATORY: Lungs are clear to auscultation bilaterally. ABDOMEN: Nondistended. ASSESSMENT AND PLAN: The patient will continue antibiotics for her abscess. We will have a delayed primary closure tomorrow. We will keep her nil per os except for ice chips. Await GI function. Anticipate hospitalization approximately 5 to 7 days. Macario Velasco MD /[id number]
--- NOTE | 2021-05-06 13:04 | PN ---
DATE OF SERVICE: 05/06/2021 SUBJECTIVE: Patient is doing well today. No specific concerns. OBJECTIVE: VITAL SIGNS: Stable. ABDOMEN: No signs of cellulitis or infection. PLAN: To the OR for delayed primary closure. Continue to advance diet and work on discharge. Macario Velasco MD /[id number]
[2021-05-06] MEDS: QUEtiapine 100 MG Tab PO SCH (21:35)
[2021-05-06] MEDS: Zolpidem 5 MG Tab PO PRN (21:40)
[2021-05-07] MEDS: Sodium Chloride 0.9% 1,000 ML IV SCH (01:51)
--- NOTE | 2021-05-07 08:27 | OR ---
DATE OF PROCEDURE: 05/06/2021 SURGEON: Macario Velasco MD PROCEDURE: Delayed primary closure. COMPLICATIONS: None. ELECTRICIAN TECHNICIAN: None. ANESTHESIA: MAC. RISKS: Risks, benefits, alternatives, and limitations including but not limited to infection, bleeding, perforation of abdominal structures, recurrent infection, other risks not listed here were explained to the patient who wished to proceed. PROCEDURE IN DETAIL: The patient was placed in supine position. The open abdomen was prepped and draped. This was then closed with interrupted 3-0 Vicryls for the deep sutures, and then the skin was closed with dolly. The patient tolerated this procedure well. Macario Velasco MD /[id number]
--- NOTE | 2021-05-07 09:10 | OR ---
DATE OF PROCEDURE: 05/06/2021 SURGEON: Macario Velasco MD PROCEDURE: 1. Transversus abdominis plane block bilaterally. 2. Bilateral rectus sheath blocks. COMPLICATION: None. CURTAIN DRIER: None. RISKS: Risks, benefits, alternatives, and limitations including, but not limited to infection, bleeding, and injury to abdominal structures were explained to the patient who wished to proceed. PROCEDURE IN DETAIL: The patient was placed in the supine position. The left transversus plane was identified 1st. 20% of the solution was injected in this spot under ultrasound guidance. This was then repeated on the other side. Bilateral rectus sheaths were also injected in the posterior sheath without difficulty. 20% of the solution was injected in each of these respectively. The patient tolerated the procedure well. Macario Velasco MD /[id number]
[2021-05-07] MEDS: Ondansetron 4 MG/2 ML SDV IVPUSH PRN ×2 (09:19→16:55)
[2021-05-07] MEDS: Morphine 2 MG/ML SYRINGE IVPUSH PRN ×7 (09:19→21:59)
[2021-05-07] MEDS: Celecoxib 200 MG Cap PO SCH ×2 (09:19→21:07)
[2021-05-07] MEDS: Check scopolamine patch SCH (09:28)
[2021-05-07] MEDS ORDERED: Hypromellose 0.3% Ophth Soln 15 ML Bottle EYEBOTH PRN (09:57)
[2021-05-07] MEDS ORDERED: Furosemide 20 MG/2 ML VIAL IVPUSH ONE (10:45)
--- NOTE | 2021-05-07 13:37 | PN ---
DATE OF SERVICE: 05/07/2021 SUBJECTIVE: The patient has improved significantly overnight. She is now having multiple bowel movements. No nausea, vomiting, shortness of breath, or chest pain. OBJECTIVE: VITAL SIGNS: Stable. She is afebrile per nursing report. CARDIOVASCULAR: Regular rhythm and rate. SKIN: Dressing is intact. ASSESSMENT: Status post exploratory laparotomy. PLAN: We will continue to advance her diet. We will saline lock her IV. Macario Velasco MD /[id number]
[2021-05-07] MEDS: Zolpidem 5 MG Tab PO PRN (21:07)
[2021-05-07] MEDS: QUEtiapine 100 MG Tab PO SCH (21:08)
[2021-05-07] MEDS ORDERED: Sodium Chloride 0.9% 500 ML IV ONE (22:01)
[2021-05-08] MEDS: Morphine 2 MG/ML SYRINGE IVPUSH PRN ×3 (01:06→08:01)
--- NOTE | 2021-05-08 07:20 | OR ---
DATE OF PROCEDURE: 05/04/2021 SURGEON: Macario Velasco MD PROCEDURES: 1. Exploratory laparotomy (21599). 2. Repair of internal hernia with incarcerated small bowel (26984). 3. Drainage of subcutaneous/intra-abdominal abscess (95442). 4. Decompression of small bowel via enterotomy (87327). 5. Removal fluid of collection right lower quadrant, non-appendiceal (09311). COMPLICATIONS: None. RECYCLING ATTENDANT: None. ANESTHESIA: General. INDICATIONS: A 40-year-old female who had a hernia type repair performed by another surgeon approximately 1 week ago. The patient has developed abdominal pain and requires exploratory laparotomy. FINDINGS: 1. Internal hernia in the proximity of the distal small bowel, repaired with Vicryl suture. 2. Fluid collection in right lower quadrant, serous type fluid, not related to appendix. 3. Abscess that is extending from the skin into the subcutaneous tissues and through the fascia (cultured). 4. Decompression of small bowel fluid (approximately 5000 mL). RISKS: Risks, benefits, alternatives, and limitations including but not limited to infection, bleeding, injury to abdominal structures, fistula formation, possibility of ostomy, and other risks not listed here were explained to the patient. She understands these risks and wishes to proceed. PROCEDURE IN DETAIL: The patient was placed in supine position. The previous dolly were opened. Immediately noted in inferior aspect of the wound, there was an abscess. This was cultured, and this was followed down into the abdomen. Careful attention was to minimize and mitigate the abscess especially in consideration of the patient's peritoneal shunt/DIRECTOR OF [employer]LE[employer]CHIVES shunt. This DIRECTOR OF [employer]LE[employer]CHIVES shunt was kept away from this area during the entire procedure. This abscess was removed, cultured, irrigated, and gloves were changed along with towels and laps, etc. The exploratory laparotomy commenced. The patient had a large bowel that would require decompression. The bowel was then followed to the distal aspect of what most likely was the distal ileum, however, near the junction of the colon and the small bowel. The patient had internal hernia with small bowel through this. This was then reduced and closed with 3-0 Vicryl suture in an interrupted fashion. The bowel was then ran in an antegrade fashion. No other abnormalities were noted. Decompression was then commenced by making a small defect in the small bowel, and a [place] sump was used to remove approximately 5000 mL of fluid. This was then closed in a Heineke- Mikulicz type fashion using a delacruz load stapler. The abdomen was irrigated with meropenem-containing solution after the fluid collection in the right lower quadrant was also removed. This was not cultured as most likely this was benign fluid and if this was an infectious etiology, the abscess would be the source and was also cultured. The 10 flat Jose D-Weinstein drain was placed in the right lower/quadrant. The fascia was closed, and the skin was left open for delayed primary closure due to the active infection. The patient tolerated the procedure well. Macario Velasco MD /[id number]
[2021-05-08] MEDS: Celecoxib 200 MG Cap PO SCH ×2 (09:20→21:07)
[2021-05-08] MEDS: Check scopolamine patch SCH (09:21)
[2021-05-08] MEDS: oxyCODONE 5 MG Tab PO PRN ×6 (09:31→21:07)
--- NOTE | 2021-05-08 10:46 | PN ---
DATE OF SERVICE: 05/08/2021 SUBJECTIVE: The patient is doing well. Pain is well controlled. No nausea, vomiting, shortness of breath, or chest pain. OBJECTIVE: VITAL SIGNS: Stable. CARDIOVASCULAR: Regular rhythm and rate. RESPIRATORY: Lungs clear to auscultation bilaterally. SKIN: Incision is healing well. ASSESSMENT: Status post exploratory laparotomy. PLAN: The patient is doing well. Anticipated discharge in the next 24 hours. Macario Velasco MD /[id number]
[2021-05-08] MEDS: QUEtiapine 100 MG Tab PO SCH (21:07)
[2021-05-08] MEDS: Zolpidem 5 MG Tab PO PRN (21:11)
[2021-05-09] MEDS: oxyCODONE 5 MG Tab PO PRN ×2 (01:51→10:15)
[2021-05-09 05:42] VITALS: BP 115/70; PULSE 105
[2021-05-09] MEDS: Check scopolamine patch SCH (08:45)
[2021-05-09] MEDS: Celecoxib 200 MG Cap PO SCH (08:53)
--- NOTE | 2021-05-09 08:55 | PN ---
DATE OF SERVICE: 05/09/2021 SUBJECTIVE: Patient is doing well. Pain is well controlled. No nausea, vomiting, shortness of breath, or chest pain. OBJECTIVE: VITAL SIGNS: Stable. CARDIOVASCULAR: Regular rhythm and rate. RESPIRATORY: Lungs clear to auscultation bilaterally. SKIN: Incision is healing well. ASSESSMENT: Status post exploratory laparotomy. PLAN: The patient will be discharged today. Please see discharge summary for further details. Macario Velasco MD /[id number]
--- NOTE | 2021-05-09 13:29 | DISCH ---
DISCHARGE DIAGNOSIS: Status post exploratory laparotomy. SUMMARY OF HOSPITAL COURSE: A pleasant 40-year-old female who underwent reoperation of exploratory laparotomy. The patient did well postoperatively. Prior to discharge, she was having multiple bowel movements. Her pain is well controlled. No nausea, vomiting, shortness of breath, or chest pain. COMPLICATIONS DURING THIS HOSPITALIZATION: None. FOLLOWUP: With Surgery in 7 to 14 days. ACTIVITY: No lifting greater than 30 pounds x30 days. DISCHARGE MEDICATIONS: Please see MAR, but include oxycodone for pain. /[id number]
== END 2021-05-09 10:45 | disposition home or self-care (01) | DRG 344 ==
LOC: JP.ED 18:20 → JP.ICU 19:00 → JP.MS 05-04 16:27
PROVIDERS: ADMIT Surgery; ATTEND Surgery
PROC: 0DQV0ZZ Repair Mesentery, Open Approach (ICD-10-PCS; principal; 2021-05-04)
PROC: 0D980ZZ Drainage of Small Intestine, Open Approach (ICD-10-PCS; 2021-05-04)
PROC: 0W9G0ZZ Drainage of Peritoneal Cavity, Open Approach (ICD-10-PCS; 2021-05-04)
PROC: 0WQF0ZZ Repair Abdominal Wall, Open Approach (ICD-10-PCS; 2021-05-06)
DX: K46.0 Unspecified abdominal hernia with obstruction, without gangrene (principal); K65.1 Peritoneal abscess; H91.90 Unspecified hearing loss, unspecified ear; H54.7 Unspecified visual loss; J45.909 Unspecified asthma, uncomplicated; G47.30 Sleep apnea, unspecified; K80.20 Calculus of gallbladder without cholecystitis without obstruction; K21.9 Gastro-esophageal reflux disease without esophagitis; K58.0 Irritable bowel syndrome with diarrhea; F41.0 Panic disorder [episodic paroxysmal anxiety]; F32.9 Major depressive disorder, single episode, unspecified; F43.10 Post-traumatic stress disorder, unspecified; E03.9 Hypothyroidism, unspecified; E66.9 Obesity, unspecified; D64.9 Anemia, unspecified; E53.8 Deficiency of other specified B group vitamins; E61.1 Iron deficiency; Z98.84 Bariatric surgery status; Z79.899 Other long term (current) drug therapy; Z68.26 Body mass index [BMI] 26.0-26.9, adult
CPT/HCPCS: 36415; 80048; 83880; 85025; 85027; 87070; 87075; 87077; 87186; 87205; 99285; A9270-GY; J0171; J0330; J1100; J1642; J1940; J2001; J2185; J2250; J2270; J2405; J2550; J2704; J2710; J2795; J3010; J3490; J7030; J7040; J7120